=== PATIENT | female | born 1940 | race Caucasian/White ===

== ENCOUNTER → 2022-03-09 13:41 | Outpatient (CLI) | payer MEDICARE, SELFPAY ==
--- NOTE | ~2022-03-09 | MM_ITS ---
EXAMINATION: MM screening dayron BI w prasanth HISTORY: Screening mammogram TECHNIQUE: Craniocaudal and mediolateral oblique 3-D tomosynthesis images were obtained and synthetic 2-D images were generated. CAD analysis was submitted and interpreted. COMPARISON: No prior mammogram is available for comparison at this institution. BREAST PARENCHYMAL COMPOSITION: There are scattered areas of fibroglandular density. FINDINGS: There is no evidence of suspicious mass, calcification, or architectural distortion to sugg est malignancy in either breast. There has been no suspicious interval change. IMPRESSION: 1. No mammographic evidence of malignancy. 2. Recommend routine screening mammography in one year. BI-RADS Category 1: Negative Reviewed, dictated and finalized at location A.
== END ==
PROVIDERS: PCP Internal Medicine; Visit Provider Internal Medicine
DX: Z12.31 Encounter for screening mammogram for malignant neoplasm of breast (principal)
CPT/HCPCS: 77063; 77067

== ENCOUNTER 2024-10-05 19:21 | Inpatient (IN) | payer MEDICARE, SELFPAY ==
--- NOTE | ~2024-10-05 | XR_ITS ---
EXAMINATION: XR chest 2V Exam Date/Time: 10/05/2024 19:38 CDT HISTORY: palpitations Comparison: None. RESULT: Lines, tubes, and devices: None. Lungs and pleura: Clear. Left lower lobe granuloma/hamartoma Cardiomediastinal silhouette: Mild cardiomegaly. Mild arch calcification and unfolding. Other: No acute osseous or upper abdominal finding. IMPRESSION: No acute cardiopulmonary process. Reviewed, dictated and finalized at location K.
[2024-10-05 19:19] VITALS: BP 188/101; PULSE 91; RESP 14; TEMP 36.7; O2SAT 99
--- NOTE | 2024-10-05 19:25 | ECG_ITS ---
Test Date: 2024-10-05 22:30:13 Measurements Intervals [place] Rate: 85 P: -12 FL: 136 QRS: 2 QRSD: 81 T: 25 QT: 353 QTc: 421 Interpretive Statements SINUS RHYTHM WITH SINUS ARRHYTHMIA POSSIBLE LEFT ATRIAL ENLARGEMENT VOLTAGE CRITERIA FOR LVH CONSIDER ANTERIOR INFARCT, AGE INDETERMINATE CONSIDER INFERIOR INFARCT, AGE INDETERMINATE BASELINE ARTIFACT- I, II, III, AVR, AVL, AVF ABNORMAL ECG No previous ECG available for comparison Electronically Signed On 10-06-2024 06:26:34 CDT by Pascual Tucker D.O.
[2024-10-05 19:35] LABS: Basophils Percent Auto 0.5 % (0.2-1.2); Eosinophils Absolute Auto 0.1 K/mm3 (0-0.3); Eosinophils Percent Auto 1.5 % (0-4.4); Hematocrit 44.7 % (37.0-47.0); Hemoglobin 14.6 g/dL (12.0-15.0); Immature Granulocyte Absolute 0.02 K/mm3 (0.00-0.031); Immature Granulocyte Percent A 0.2 % (0-0.5); Lymphocytes Absolute Auto 1.23 K/mm3 (0.9-3.2); Lymphocytes Percent Auto 14.2 % (18.3-44.2); Mean Corpuscular HGB Conc 32.7 g/dl (32-36); Mean Corpuscular Hemoglobin 31.7 pg (26-34); Mean Platelet Volume 11.4 fl (7.4-10.4); Monocytes Absolute Auto 0.8 K/mm3 (0.1-0.6); Monocytes Percent Auto 9.7 % (2.6-8.5); Neutrophils Absolute Auto 6.4 K/mm3 (1.3-6.7); Neutrophils Percent Auto 73.9 % (45.5-73.1); Platelet Count Result 190 k/mm3 (150-375); Red Blood Count 4.61 M/mm3 (4.2-5.4); Red Cell Distribution Width 13.3 % (11.5-14.5); White Blood Count 8.7 K/mm3 (4.5-10.0)
[2024-10-05 19:47] LABS: Partial Thromboplastin Time 23.5 Seconds (22.3-36.8); Prothrombin Time 13.5 Seconds (11.1-14.7)
[2024-10-05 19:48] LABS: Alanine Aminotransferase 25 U/L (6-35); Albumin Level 4.8 g/dL (3.5-5.1); Alkaline Phosphatase 82 U/L (38-126); Anion Gap 14 mmol/L (4-12); Aspartate Amino Transferase 26 U/L (14-36); Bilirubin,Total 0.5 mg/dL (0.2-1.3); Blood Urea Nitrogen 24 mg/dL (7-17); Calcium 9.8 mg/dL (8.4-10.2); Carbon Dioxide 21 mmol/L (22-30); Chloride 101 mmol/L (98-107); Estimated CRCL calculation 35 ml/min; Estimated Glomerular Filt Rate 52; Glucose 148 mg/dL (65-110); Lipase 212 U/L (23-300); Potassium 3.9 mmol/L (3.4-5.0); Sodium 136 mmol/L (137-145)
[2024-10-05 20:00] LABS: Troponin I < 0.012 ng/mL (0.000-0.034)
--- OUTSIDE RECORDS SUMMARY | 2024-10-05 20:40 | XMS_ITS | Clinical Summary ---
Author Organization [facility] Address [address] [place] [address] Care Team Providers Care Insurance Underwriter Name Role Phone Francisco Tinoco MD Primary Care Provider [phone] Allergies Active Allergy Reactions Criticality Noted Date Comments Oxycodone Nausea and Vomiting 12/08/2019 Medications multiple vitamins-minerals (AQUADEKS) Cap Take 1 capsule by mouth daily. Active Multiple Vitamins-Minerals (MULTIVITAMIN ADULTS 50+ OR) Take 1 tablet by mouth daily. Active calcium carb-cholecalcife rol (CALCIUM 600+D) 600-800 MG-UNIT tablet Take 1 tablet by mouth daily. Active aspirin EC (ECOTRIN) 81 MG tablet Take 1 tablet (81 mg total) by mouth daily. Active vitamin C (ASCORBIC ACID) 250 MG tablet Take 1 tablet (250 mg total) by mouth daily. Active NON FORMULARY Glucose 4, one capsule daily. Active amLODIPine (NORVASC) 10 MG tabletIndications :Benign essential hypertension Take 1 tablet (10 mg total) by mouth daily. 90 tablet 3 5 Active Active Problems Problem Noted Date Diagnosed Date Nonrheumatic aortic valve stenosis 05/09/2022 Pericardial effusion (HHS/HCC) 05/09/2022 Nonrheumatic mitral valve stenosis 05/09/2022 Pure hypercholesterolemia 05/09/2022 Osteopenia 03/07/2019 Acute stress disorder 11/04/2017 BMI 29.0-29.9,adult 01/29/2017 Fatigue 07/01/2012 Benign essential hypertension 03/07/2012 Encounters Date Type Department Care Team Description 07/29/2024 Telephone [facility] Family [facility] Internal Medicine [address] [id number] Francisco Tinoco MD Medication Request from Last 3 Months Immunizations Immunization Administration Dates Next Due Fluzone High Dose - >Age 65 (Prefilled Syringe) 04/12/2022,04/11/2021,04/09/2020 Influenza Adult (Generic) 04/12/2022,06/2017(Deferred: Patient Refused) PFIZER COVID-19 (ORIGINAL FORMULATION, PURPLE CAP) mRNA, LNP-S, PF, 30 MCG/0.3 ML DOSE 05/02/2021,09/22/2020,08/25/2020 Pneumococcal (Pneumovax 23) 02/04/2018 Pneumococcal (Prevnar 13) 01/29/2017 Pneumovax 23 25 Mcg/0.5Ml Ij Inj 02/04/2018 Shingrix 05/10/2019,02/27/2019 VFC-Influenza (Fluvirin) 03/11/2019(Defe rred: Patient Refused - pt states she never gets the flu shot) Family History Medical History Relation Comments Heart Disease Father Heart Disease Mother Hypertension Sister Thyroid Disease Sister Relation Status Comments Father Mother Sister Social History Tobacco Use Types Packs/Day Years Used Date Smoking Tobacco: Never Smokeless Tobacco: Never Tobacco Cessation:Counseling Given: Not Answered Comments:Not a smoker Alcohol Use Standard Drinks/Week Comments No 0 (1 standard drink = 0.6 oz pur e alcohol) AUDIT-C Answer Date Recorded Frequency of Alcohol Consumption Never 02/10/2019 Average Number of Drinks Not on file 019 Frequency of Binge Drinking Not on file 01/23 PHQ-2 Answer Date Recorded Patient Health Questionnaire-2 Score 0 04/11/2023 Education Answer Date Recorded What is the highest level of school you have completed or the highest degree you have received? 12th grade 02/10/2019 Comments No Sex and Gender Information Value Date Recorded Sex Assigned at Female 02/10/2019 8:31 AM CDT Legal Sex Female 6:57 PM CDT Gender Identity Female 02/10/2019 8:31 AM CDT Sexual Orientation Straight 02/10/2019 8: 31 AM CDT Last Filed Vital Signs Vital Sign Reading Time Taken Comments Blood Pressure 170/82 02/28/2024 9:36 AM CDT Pulse 73 02/28/2024 9:36 AM CDT Temperature 36.8 C (98.2 F) 02/28/2024 9:36 AM CDT Respiratory Rate 16 02/28/2024 9:36 AM CDT Oxygen Saturation 98% 02/28/2024 9:36 AM CDT Inhaled Oxygen Concentration - - Weight 76.1 kg (167 lb 12.8 oz) 02/28/2024 9:36 AM CDT Height 160 cm (5' 3 ) 02/28/2024 9:36 AM CDT Body Mass Index 29.72 02/28/2024 9:36 AM CDT Plan of Treatment Upcoming Encounters Date Type Department Care Team (Late st Contact Info) Description 02/09/2025 7:20 AM CDT Laboratory Only [facility] Family & Internal [address] [address] Francisco Tinoco MD [address] [place] [address] 02/16/2025 8:00 AM CDT Office Visit [facility] [address] [phone] Francisco Tinoco MD [address] [place] [address] Health Maintenance Due Date Last Done Comments Annual Medicare Wellness Visit 09/29/2022 09/28/2021 PHQ-2 (Physician [place]) 06/25/2024 04/11/2023 COVID-19 Vaccine (4 - 2023-2 5 season) 2025 05/02/2021, 09/22/2020, 08/25/2020 Postponed from 02/24/2024 (Going to Outside Clinic) DTaP, Tdap and Td Vaccines ( 1 - Tdap) 02/27/2025 Postponed from 10/12 (Going to Outside Clinic) RSV Immunization or 60+ Years (1 - 1-dose 75+ series) 02/27/2025 Postponed from 10/12 (Going to Outside Clinic) Pneumococcal Vaccine: 50+ Years Completed 02/04/2018, 02/04/2018, 01/29/2017 Zoster Vaccines Completed 05/10/2019, 02/27/2019 Meningococcal B Vaccine Aged Out No l onger eligible based on patient's age to complete this topic Meningococcal Vaccine Aged Out No leonard allie eligible based on patient's age to complete this topic RSV Immunizations Under 20 Months Aged Out No longer eligible b ased on patient's age to complete this topic Insurance [employer] HUMAN Care Teams Insurance Underwriter Relationship Specialty Start Date End Date Francisco Tinoco MD [address] [place] [id number] PCP - General INTERNAL MEDICINE 06/04/18
--- OUTSIDE RECORDS SUMMARY | 2024-10-05 20:40 | XMS_ITS | Encounter Summary ---
Author Organization 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 Historical Provider Final Res ult documented in this encounter Visit Diagnoses Not on filedocumented in this encounter Care Teams Outdoor Advertising Leasing Agent Relationship Specialty Start Date End Date No, Physician PCP - General 04/01/21 documented as of this encounter
--- OUTSIDE RECORDS SUMMARY | 2024-10-05 20:40 | XMS_ITS | Referral Summary ---
Author Organization [facility] Address [address] [place] [address] Care Team Providers Care Cvor Nurse Name Role Phone No, Physician Primary Care Provider [phone] Allergies No known active allergies Medications aspirin 81 mg enteric coated tablet Take 1 tablet by mouth daily Active amLODIPine (NORVASC) 10 mg tablet 03/14/2021 Active calcium carbonate/vitami n D3 (CALCIUM 600 + D,3, ORAL) Take by mouth Active mv-minerals/FA/o yonathan 3,6,9 #3 (WOMEN'S 50+ ADVANCED ORAL) Take by mouth Active Active Problems No known active problems Social History Tobacco Use Types Packs/Day Years Used Date Smoking Tobacco: Never Personal Safety Answer Date Recorded Getting School Help Needed Not on file 09/07 Comments Unknown Sex and Gender Information Value Date Recorded Sex Assigned at Not on file 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 Gender Identity Not on file Sexual Orientation Not on file Occupation Industry Job Start Date Job End Date retired Not on file Not on file Not on file Last Filed Vital Signs Vital Sign Reading Time Taken Comments Blood Pressure 147/64 04/07/2016 7:34 AM CDT Pulse 73 04/07/2016 7:34 AM CDT Temperature 36.6 C (97.9 F) 04/07/2016 7:34 AM CDT Respiratory Rate - - Oxygen Saturation 98% 04/07/2016 7:34 AM CDT Inhaled Oxygen Concentration - - Weight 72.6 kg (160 lb) 04/12/2021 8:31 AM CDT Height 162.6 cm (5' 4 ) 04/12/2021 8:31 AM CDT Body Mass Index 27.46 04/12/2021 8:31 AM CDT Plan of Treatment Not on file Insurance Advance Directives For more information, please contact: [phone] Documents on File Type Date Recorded Patient Show Host Or Hostess Expl anation ADVANCE DIRECTIVE 03/28/2016 12:00 AM OJ Pereira OF SOFTWARE TEST DEVELOPER FINANCIAL/MEDICAL Care Teams Cvor Nurse Relationship Specialty Start Date End Date No, Physician PCP - General 04/01/21
--- OUTSIDE RECORDS SUMMARY | 2024-10-05 20:40 | XMS_ITS | Continuity of Care Document ---
Author Organization [facility] Address [address] [place] [address] Phone Care Team Providers Care Right Of Way Man Name Role Phone Saman Agarwal Unavailable Unavailable Procedures Procedure Date Therapeutic Activities Therapeutic Exercise Neuromuscular Re-Ed Therapeutic Activities Neuromuscular Re-Ed Therapeutic Exercise Therapeutic Activities Neuromuscular Re-Ed Therapeutic Exercise Hot or Cold Pack Therapeutic Activities Neuromuscular Re-Ed Therapeutic Exercise Hot or Cold Pack Manual Therapy Doc neg elder mal no plan PRES/ABSN URINE INCON ASSESS PT Evaluation Moderate Complexity Neuromuscular Re-Ed Therapeutic Exercise THERAPEUTIC EXERCISES MANUAL THERAPY FUNC ACTIVITY HOT/COLD PACK ELECTRIC STIMULATION UNATT THERAPEUTIC EXERCISES MANUAL THERAPY FUNC ACTIVITY HOT/COLD PACK ELECTRIC STIMULATION UNATT THERAPEUTIC EXERCISES MANUAL THERAPY FUNC ACTIVITY NEUROMUSCULAR RE-ED HOT/COLD PACK ELECTRIC STIMULATION UNATT THERAPEUTIC EXERCISES NEUROMUSCULAR RE-ED MANUAL THERAPY FUNC ACTIVITY HOT/COLD PACK ELECTRIC STIMULATION UNATT THERAPEUTIC EXERCISES NEUROMUSCULAR RE-ED MANUAL THERAPY FUNC ACTIVITY HOT/COLD PACK ELECTRIC STIMULATION UNATT THERAPEUTIC EXERCISES NEUROMUSCULAR RE-ED MANUAL THERAPY FUNC ACTIVITY HOT/COLD PACK ELECTRIC STIMULATION UNA THERAPEUTIC EXERCISES NEUROMUSCULAR RE-ED MANUAL THERAPY FUNC ACTIVITY GAIT TRAINING 15 MIN HOT/COLD PACK ELECTRIC STIMULATION UNATT THERAPEUTIC EXERCISES NEUROMUSCULAR RE-ED MANUAL THERAPY FUNC ACTIVITY HOT/COLD PACK ELECTRIC STIMULATION UNA PT EVALUATION THERAPEUTIC EXERCISES MANUAL THERAPY FUNC ACTIVITY GAIT TRAINING 15 MIN ELECTRIC STIMULATION UNATT Carrying, Moving And Handling Objects-Cu rrent Carrying, Moving And Handling Objects-Go al Medications Name Dose Freq Route DOC Apr Pain Assess Positive DOC 2015 BMI Normal and DOC 18-64 yo=18.5-25.0 65 + yo=23.0-30.0 No Falls or 1 Fall w/o Injury Screened f or Fall Risk Functional Outcome Assessmen t documented, deficits identified, treatment plan es Advance Directives Directive Yes / No Effective Date File Name No Information Encounters Encounter Description Practice Location Reason(s) For Visit Diagnoses Date Provider Providers Copied on Encounter [facility], [address] [address], [place], [place], [id number], [place] tel:[phone] [place] No Information Sep-2 0-202 4 Muehl Saman. [address] [place] [address], [address], [place], [place], [facility], [place]. tel:[phone] Referring Provider: [place], [address]. tel:[phone] [place] [address], [id number], tel:[phone] [place] No Information Sep-1 7-202 4 Muehl Saman. [address] [place] [address], [facility], [place], [place], [facility], [place]. tel:[phone] Referring Provider: [place], [address]. tel:[phone] [place] [address], [id number], tel:[phone] [place] No Information Sep-1 2-202 4 Muehl Saman. [address] [place] [address], [address], [place], [facility], [place]. tel:[phone] Referring Provider: [place], [address]. tel:[phone] [place] [address], [id number], [place] tel:[phone] [place] No Information Sep-1 0-202 4 Muehl Saman. [address] [place] [address], [address], [place], [address], [place]. tel:[phone] Referring Provider: [place], [address]. tel:[phone] [place], [place] [address], [place], [place], [id number], tel:[phone] [place] No Information Sep-0 6-202 4 Muehl Saman. [address] [place] [address], [address], [place], [place], [facility], . tel:[phone] Referring Provider: Francisco Tinoco, [address] [facility], [place], [address]. tel:[phone], [place], [place], [id number], tel:[phone] [place] No Information Dec-1 2-201 6 Niederhoffer Lacy. . Referring Provider: Braulio Katz, [address] [place] [address], [place], [address]. tel:[phone], [place], [place], [id number], [place] tel:[phone] [place] No Information Dec-0 9-201 6 Niederhoffer Lacy. . Referring Provider: Braulio Katz, [address] [place] [address], [place], [address]. tel:[phone], [place], [id number], [place] tel:[phone] [place] No Information Dec-0 7-201 6 Muehl Saman. [address] [facility] [address], [place], [facility], [place]. tel:[phone] Referring Provider: Braulio Katz, [address] [place] [address], [place], [address]. tel:[phone] [address], [place], [id number], [place] tel:[phone] [place] No Information Dec-0 5-201 6 Muehl Saman. [address] [facility], [address], [place], [address], [place]. tel:[phone] Referring Provider: Braulio Katz, [address] [place] [address], [place], [address]. tel:[phone] [address], [place], [place], [id number], [place] tel:[phone] [place] No Information Dec-0 2-201 6 Muehl Saman. [address] [facility], [address], [place], [facility], . tel:[phone] Referring Provider: Braulio Katz [address] [place] [address] [address], [address]. tel:[phone] [address], [place], [id number], tel:[phone] [place] No Information Apr-3 0-201 6 Muehl Saman. [address] [facility], [address], [place], [place], [facility], [place]. tel:[phone] Referring Provider: Braulio Katz [address] [place] [address] [address], [place], [address]. tel:[phone], [id number], tel:[phone] [place] No Information Nov-2 8-201 6 Muehl Saman. [address] [place] [address], [address], [place], [facility], [place]. tel:[phone] Referring Provider: Braulio Katz [address] [place] [address] [address], [place], [address]. tel:[phone], [place], [id number], tel:[phone] [place] No Information Apr-2 5-201 6 Muehl Saman. [address] [place] [address], [address], [place], [facility], . tel:[phone] Referring Provider: Braulio Katz [address] [place] [address] [address], [place], [address]. tel:[phone] [address], [place], [id number], tel:[phone] [place] Pain in left kneeStiffness of left knee, not elsewhere classifiedEff usion, left kneeUnspecifi ed abnormalities of gait and mobilityMuscl e weakness (generalized) Presence of left artificial knee joint Nov-2 2-201 6 Ar Davison. [address] [facility], [address], [place], [address], [place]. tel:[phone] Referring Provider: Braulio Katz, [facility] [address], [place], [address]. tel:[phone] Family History Family Member Type Diagnosis Age At Onset No Information Payers Payer name Insurance type Covered constitution party ID Authorfinaa alphonso(s) Aetna Medicare Replacement CI [id number] Social History Type Description Quantity Date Captured Comments Sex Female Smoking Status No Information Chief Complaint And Reason For Visit No Information Reason For Referral Reason For Referral No Information History Of Present Illness Encounter Date Complaint History Of Prese nt Illness No Information Functional Status Date Functional Assessmen t No Information Instructions Date Instruction Additional Infor mation No Information Assessments Type Assessment Date No Information Patient Care Teams Name Effective Dates (start - stop) Status Members No Information
--- OUTSIDE RECORDS SUMMARY | 2024-10-05 20:40 | XMS_ITS | Clinical Summary ---
Author Organization [facility] Address [facility] [place] [address] Care Team Providers Care Collar Turner Name Role Phone No, Physician Primary Care Provider [phone] Allergies No known active allergies Medications aspirin 81 mg enteric coated tablet Take 1 tablet by mouth daily Active amLODIPine (NORVASC) 10 mg tablet 03/14/2021 Active calcium carbonate/vitami n D3 (CALCIUM 600 + D,3, ORAL) Take by mouth Active mv-minerals/FA/o yonathan 3,6,9 #3 (WOMEN'S 50+ ADVANCED ORAL) Take by mouth Active Active Problems No known active problems Surgical History Surgery Date Site/Laterality Comments JOINT REPLACEMENT Left total knee Medical History Medical History Date Comments Hypertension Family History Medical History Relation Name Comments Stroke Father Arthritis Mother Relation Name Status Comments Father Mother Social History Tobacco Use Types Packs/Day Years Used Date Smoking Tobacco: Never Personal Safety Answer Date Recorded Getting School Help Needed Not on file 09/07 Comments Unknown Sex and Gender Information Value Date Recorded Sex Assigned at Not on file 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
--- OUTSIDE RECORDS SUMMARY | 2024-10-05 20:40 | XMS_ITS | Encounter Summary ---
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 Historical Provider Final Res ult * PROCEDURE - RESULT (04/07/2016 12:00 AM CDT) Narrative 04/07/2016 12:00 AM CDT Ordered by an unspecified provider. Historical Provider Final Res ult documented in this encounter Visit Diagnoses Not on filedocumented in this encounter Care Teams Supervisor Lace Tearing Relationship Specialty Start Date End Date No, Physician PCP - General 04/01/21 documented as of this encounter
[2024-10-05 20:52] VITALS: BP 169/93; PULSE 88; RESP 19; O2SAT 97
[2024-10-05 23:45] VITALS: BP 159/78; PULSE 83; RESP 15; O2SAT 99
--- NOTE | 2024-10-05 23:50 | ED_ITS ---
HPI - General Adult General Chief complaint: Arrhythmia/Palpitations Stated complaint: ANXIETY, ELEVATED PULSE & B/P Time Seen by Provider: 10/05/24 20:12 History of Present Illness HPI narrative: Patient is a 83-year-old female presents emergency department with chief complaint of elevated heart rate elevated blood pressure. Patient states she did have a little bit of fullness in her chest as well a tightness in her throat. The patient states that her symptoms have currently resolved reports that she had no diaphoresis reports that she takes amlodipine for hypertension. Related Data Allergies Allergy/AdvReac Type Severity Reaction Status Date / Time No Known Allergies Allergy Verified 10/05/24 19:33 Review of Systems 2 Review of Systems: A 10 system review of systems was completed on the patient and is negative except for what is stated in the HPI. Nursing and ancillary documentation was reviewed. Exam 2 Narrative: GENERAL: Well-appearing, well-nourished, and in no acute distress. HEAD: Normocephalic, atraumatic. EYES: PERRLA and EOMI. ENT: Nares clear, no rhinorrhea or epistaxis. Mucous membranes moist. NECK: Supple. CHEST: Clear to auscultation. No respiratory distress. HEART: Regular rate and rhythm. No murmur heard. Normal peripheral pulses. ABDOMEN: Soft, nontender, nondistended, normal active bowel sounds. EXTREMITIES: Normal range of motion. No edema. SKIN: Warm, dry, no rash. NEURO: No focal deficits. Alert and oriented x3. PSYCH: Normal mood and affect. Course Vital Signs Vital signs: Vital Signs Temperature 36.7 C 10/05/24 19:19 Pulse Rate 91 10/05/24 19:19 Respiratory Rate 14 10/05/24 19:19 Blood Pressure 188/101 H 10/05/24 19:19 Pulse Oximetry 99 10/05/24 19:19 Oxygen Delivery Room Air 10/05/24 19:19 Temperature 36.7 C 10/05/24 19:19 Pulse Rate 83 10/05/24 23:45 Respiratory Rate 15 10/05/24 23:45 Blood Pressure 159/78 H 10/05/24 23:45 Pulse Oximetry 99 10/05/24 23:45 Oxygen Delivery Room Air 10/05/24 19:19 Medical Decision Making [facility] Narrative Medical decision making narrative: Differential diagnosis includes ACS, hypertensive urgency, electrolyte abnormality, dysrhythmia, EKG showed no acute ischemic changes Initial troponin was less than 0.012 repeat troponin was 0.030 This was negative but given the troponin has increased significantly the patient will be admitted for observation with serial cardiac markers. Vital Signs Vital Signs: Vital Signs Temperature 36.7 C 10/05/24 19:19 Pulse Rate 91 10/05/24 19:19 Respiratory Rate 14 10/05/24 19:19 Blood Pressure 188/101 H 10/05/24 19:19 Pulse Oximetry 99 10/05/24 19:19 Oxygen Delivery Room Air 10/05/24 19:19 Temperature 36.7 C 10/05/24 19:19 Pulse Rate 83 10/05/24 23:45 Respiratory Rate 15 10/05/24 23:45 Blood Pressure 159/78 H 10/05/24 23:45 Pulse Oximetry 99 10/05/24 23:45 Oxygen Delivery Room Air 10/05/24 19:19 Lab Data 10/05/24 19:28 10/05/24 19:28 Labs: Lab Results 10/05/24 10/05/24 Range/Units 19:28 22:25 WBC 8.7 (4.5-10.0) K/mm3 RBC 4.61 (4.2-5.4) M/mm3 Hgb 14.6 (12.0-15.0) g/dL Hct 44.7 (37.0-47.0) % MCV 97.0 (80-100) fl MCH 31.7 (26-34) pg MCHC 32.7 (32-36) g/dl RDW 13.3 (11.5-14.5) % Plt Count 190 (150-375) k/mm3 MPV 11.4 H (7.4-10.4) fl Immature Gran % (Auto) 0.2 (0-0.5) % Neut % (Auto) 73.9 H (45.5-73.1) % Lymph % (Auto) 14.2 L (18.3-44.2) % [place] % (Auto) 9.7 H (2.6-8.5) % Eos % (Auto) 1.5 (0-4.4) % Baso % (Auto) 0.5 (0.2-1.2) % Lymph # (Auto) 1.23 (0.9-3.2) K/mm3 [place] # (Auto) 0.8 H (0.1-0.6) K/mm3 Eos # (Auto) 0.1 (0-0.3) K/mm3 Baso # (Auto) 0.0 (0.0-0.1) K/mm3 Abs Immat Gran (auto) 0.02 (0.00-0.031) K/mm3 Absolute Neuts (auto) 6.4 (1.3-6.7) K/mm3 Absolute Nucleated RBC 0.000 (0.0-0.012) K/mm3 Nucleated RBC % 0.0 (0.0-0.2) % PT 13.5 (11.1-14.7) Seconds INR 1.0 APTT 23.5 (22.3-36.8) Seconds Sodium 136 L (137-145) mmol/L Potassium 3.9 (3.4-5.0) mmol/L Chloride 101 (98-107) mmol/L Carbon Dioxide 21 L (22-30) mmol/L Anion Gap 14 H (4-12) mmol/L BUN 24 H (7-17) mg/dL Creatinine 1.02 H (0.7-1.0) mg/dL Estim Creat Clear Calc 35 ml/min Estimated GFR 52 L (59 - ) Glucose 148 H (65-110) mg/dL Calcium 9.8 (8.4-10.2) mg/dL Total Bilirubin 0.5 (0.2-1.3) mg/dL AST 26 (14-36) U/L ALT 25 (6-35) U/L Alkaline Phosphatase 82 (38-126) U/L Troponin I < 0.012 0.030 D (0.000-0.034) ng/mL Total Protein 9.0 H (6.3-8.2) g/dL Albumin 4.8 (3.5-5.1) g/dL Lipase 212 (23-300) U/L Discharge Plan Discharge Clinical Impression: Palpitations, Hypertension, Atypical chest pain Patient Disposition: Still a Patient Condition: Stable Patient Language: Turkmen Follow-up/Referrals: Earnest,Francisco June MD [Primary Care Provider] - Time of Disposition: 23:52
[2024-10-06] VITALS (17 sets, daily range): BP systolic 125–184; BP diastolic 58–93; PULSE 48–83; RESP 14–20; TEMP 36.6–36.9; O2SAT 97–99; BMI 28.5
--- NOTE | 2024-10-06 | ECHO_ITS ---
Patient Info Name: Mague Estrada Age: 83 years : 1940 Gender: Female Ht: 64 in Wt: 171 lbs BSA: 1.90 m2 HR: 70 bpm BP: 149 / 67 mmHg Technical Quality: Good Exam Date: 10/06/2024 2:22 PM Exam Location: Echo Lab Patient Status: Outpatient Admit Date: 10/05/2024 Staff Ordering Physician: Wes Booth MD Head Of Data: Ana Field RDCS Attending Provider: Wes Booth MD Referring Physician: Emmy HURLEY; Exam Type: CA echo doppler color flow Study Info Indications - Chest Pain Complete two-dimensional, color flow and Doppler transthoracic echocardiogram is performed. Summary 1. Complete two-dimensional, color flow and Doppler transthoracic echocardiogram is performed. 2. Left ventricular systolic function is hyperdynamic, estimated at >70%. 3. There is moderately increased left ventricular wall thickness. 4. The left ventricular diastolic function is grade I diastolic dysfunction. 5. Left atrial chamber dimension is severely enlarged. 6. There is moderate to severe aortic valve stenosis with a peak velocity of 339 cm/s, mean gradient of 31 mmHg, and aortic valve area of 1.0 cm2. 7. There is moderate aortic valve calcification. 8. There is mild to moderate mitral valve stenosis. 9. There is moderate mitral valve calcification. 10. There is mild tricuspid valve regurgitation. 11. Mild pulmonary hypertension, estimated pulmonary arterial systolic pressure is 40 mmHg. 12. small to moderate pericardial effusion. No tamponade. Left Ventricle Left ventricular chamber dimension is normal. Left ventricular systolic function is hyperdynamic, estimated at >70%. There is moderately increased left ventricular wall thickness. Left ventricular septal wall motion is normal. The left ventricular diastolic function is grade I diastolic dysfunction. Right Ventricle Right ventricular chamber dimension is normal. Right ventricular systolic function is normal. Left Atria Left atrial chamber dimension is severely enlarged. Right Atria Right atrial chamber dimension is normal. Aortic Valve The aortic valve is trileaflet. There is no aortic valve sclerosis. There is moderate to severe aortic valve stenosis with a peak velocity of 339 cm/s, mean gradient of 31 mmHg, and aortic valve area of 1.0 cm2. There is no aortic valve regurgitation. There is moderate aortic valve calcification. Pulmonic Valve The pulmonic valve is normal. There is no pulmonic valve stenosis. There is no pulmonic regurgitation. Mitral Valve The mitral valve has normal leaflets. There is mild to moderate mitral valve stenosis. There is no mitral valve regurgitation. There is moderate mitral valve calcification. Tricuspid Valve The tricuspid valve leaflets are normal. There is no significant tricuspid valve stenosis. There is mild tricuspid valve regurgitation. Mild pulmonary hypertension, estimated pulmonary arterial systolic pressure is 40 mmHg. Pericardium/Pleural The pericardium appears normal. There is no pericardial effusion. Inferior Vena Cava Normal inferior vena cava with >50% collapse upon inspiration consistent with normal right atrial pressure, 5 mmHg. Aorta The aortic root size at the sinus of Valsalva is normal. The prox ascending aorta size is normal. Left Ventricular Outflow Tract Name Value Normal LVOT 2D LVOT Diameter 1.8 cm LVOT Doppler LVOT Peak Gradient 6 mmHg LVOT Mean Gradient 4 mmHg LVOT VTI 28 cm LVOT VTI/AV VTI Ratio 0.4 LVOT Stroke Volume 74 ml LVOT CO 16.1 l/min LVOT CI 8.5 l/min/m2 Pulmonic Valve Name Value Normal PV Doppler PV Peak Gradient 5 mmHg Mitral Valve Name Value Normal MV Doppler MV Peak Gradient 20 mmHg MV Mean Gradient 6 mmHg MV Decel Crisp 310 cm/s2 MV PHT 132 ms MV Area (PHT) 1.7 cm2 4.0-5.0 MV Area (Cont Eq VTI) 0.9 cm2 MV Diastolic Function MV E Peak Velocity 141 cm/s MV A Peak Velocity 231 cm/s MV E/A 0.6 MV Decel Time 456 ms MV Annular TDI MV E/e' (Septal) 44.8 <=8.0 MV E/e' (Lateral) 47.5 <=8.0 MV E/e' (Average) 46.2 Tricuspid Valve Name Value Normal TV Regurgitation Doppler TR Peak Velocity 296 cm/s TR Peak Gradient 35 mmHg Estimated PAP/RSVP RA Pressure 5 mmHg <=5 PA Systolic Pressure 40 mmHg <36 RV Systolic Pressure 40 mmHg <36 Aorta Name Value Normal Ascending Aorta Ao Root Diameter (MM) 2.8 cm Ao Root Diam Index (MM) 1.5 cm/m2 Aortic Valve Name Value Normal AV Doppler AV Peak Velocity 339 cm/s AV Peak Gradient 46 mmHg AV Mean Gradient 31 mmHg AV VTI 74 cm AV Area (Cont Eq VTI) 1.0 cm2 >=3.0 AV Area (Cont Eq Brock) 0.9 cm2 AV Regurgitation 2D LVOT Area 2.6 cm2 Ventricles Name Value Normal LV Dimensions 2D/MM IVS Diastolic Thickness (2D) 1.7 cm 0.6-1.0 LVID Diastole (2D) 3.7 cm 3.8-5.2 LVIW Diastolic Thickness (2D) 1.3 cm 0.6-0.9 LVID Systole (2D) 2.1 cm 2.2-3.5 LVOT Diameter 1.8 cm LV Mass (2D Cubed) 199.45 g 67.00-162.00 LV Mass Index (2D Cubed) 105 g/m2 43-95 Relative Wall Thickness (2D) 0.69 LV Fractional Shortening/Ejection Fraction 2D/MM LV Fractional Shortening (2D) 43 % 27-45 LV EF (2D Teicholz) 75 % 54-74 LV Diastolic Volume (4C MOD) 74 ml LV EF (4C MOD) 63 % LV Diastolic Volume (2C MOD) 74 ml LV EF (2C MOD) 65 % LV Diastolic Volume (BP MOD) 74 ml 46-106 LV Diastolic Volume Index (BP MOD) 39 ml/m2 29-61 LV Systolic Volume (BP MOD) 27 ml 14-42 LV Systolic Volume Index (BP MOD) 14 ml/m2 8-24 LV EF (BP MOD) 63 % 54-74 LV Diastolic Length (4C) 7.5 cm LV Systolic Length (4C) 6.5 cm LV Stroke Volume (4C MOD) 46 ml RV Dimensions 2D/MM RVID Diastole (2D) 3.7 cm 2.5-3.5 Atria Name Value Normal LA Dimensions LA Dimension (MM) 4.8 cm 2.7-3.8 LA Volume (4C A-L) 113 ml LA Volume (BP A-L) 93 ml RA Dimensions RA Area (4C) 13.9 cm2 <=18.0 Report Signatures
--- NOTE | 2024-10-06 01:09 | ADMGEN ---
This patient, Mague Estrada, was admitted to IMU Room 213-01. Patient/family oriented to hospital policies and general routines including ID bracelet, bed and alarms, visiting hours, pain management, procedures, bathroom and other care routines, personal items, smoking policy, room service/diet, and visiting hours. Information on how to activate the Rapid Response Team has been discussed. Patient/Family are encouraged to report perceived risks to care and to ask questions if they do not understand what they are told or what they should do.
[2024-10-06 01:15] LABS: NT Pro B Type Natriuretic Pept 418 pg/mL (19.9-100)
[2024-10-06 02:27] LABS: Basophils Percent Auto 0.5 % (0.2-1.2); Eosinophils Absolute Auto 0.2 K/mm3 (0-0.3); Hematocrit 42.6 % (37.0-47.0); Immature Granulocyte Absolute 0.02 K/mm3 (0.00-0.031); Immature Granulocyte Percent A 0.2 % (0-0.5); Lymphocytes Absolute Auto 1.09 K/mm3 (0.9-3.2); Lymphocytes Percent Auto 13.3 % (18.3-44.2); Mean Corpuscular HGB Conc 32.9 g/dl (32-36); Mean Corpuscular Hemoglobin 31.5 pg (26-34); Mean Corpuscular Volume 95.7 fl (80-100); Mean Platelet Volume 11.4 fl (7.4-10.4); Monocytes Absolute Auto 0.8 K/mm3 (0.1-0.6); Monocytes Percent Auto 9.7 % (2.6-8.5); Neutrophils Absolute Auto 6.1 K/mm3 (1.3-6.7); Neutrophils Percent Auto 74.3 % (45.5-73.1); Platelet Count Result 178 k/mm3 (150-375); Red Blood Count 4.45 M/mm3 (4.2-5.4); Red Cell Distribution Width 13.2 % (11.5-14.5); White Blood Count 8.2 K/mm3 (4.5-10.0)
[2024-10-06 02:39] LABS: Alanine Aminotransferase 26 U/L (6-35); Albumin Level 4.4 g/dL (3.5-5.1); Alkaline Phosphatase 64 U/L (38-126); Anion Gap 11 mmol/L (4-12); Aspartate Amino Transferase 27 U/L (14-36); Bilirubin,Total 0.5 mg/dL (0.2-1.3); Blood Urea Nitrogen 19 mg/dL (7-17); Calcium 9.6 mg/dL (8.4-10.2); Carbon Dioxide 24 mmol/L (22-30); Chloride 102 mmol/L (98-107); Estimated CRCL calculation 43 ml/min; Estimated Glomerular Filt Rate > 60; Glucose 117 mg/dL (65-110); Potassium 3.9 mmol/L (3.4-5.0); Sodium 137 mmol/L (137-145)
--- NOTE | 2024-10-06 02:41 | ECG_ITS ---
Test Date: 2024-10-06 03:07:00 Measurements Intervals [place] Rate: 82 P: 65 MD: 146 QRS: 50 QRSD: 79 T: 23 QT: 373 QTc: 437 Interpretive Statements SINUS RHYTHM POSSIBLE LEFT ATRIAL ENLARGEMENT CONSIDER ANTERIOR INFARCT, AGE INDETERMINATE BORDERLINE ST-T WAVE ABNORMALITY- INFERIOR LEADS ABNORMAL ECG Compared to ECG 10/05/2024 22:30:13 NO SIGNIFICANT CHANGE Electronically Signed On 10-06-2024 06:29:38 CDT by Pascual Tucker D.O.
[2024-10-06] MEDS: amLODIPine BESYLATE 10 MG TABLET PO (02:58)
[2024-10-06] MEDS: cloNIDine HCL 0.1 MG TABLET PO (02:58)
[2024-10-06 03:10] LABS: Troponin I 0.035 ng/mL (0.000-0.034)
[2024-10-06] MEDS: HEPARIN SODIUM 5,000 UNITS/ML VIAL 5000 UNITS SUB-Q ×3 (05:13→22:19)
--- NOTE | 2024-10-06 06:14 | P.HP_ITS ---
H&P: HPI History of Present Illness Date/Time: 10/06/24 06:14 Chief Complaint: 1. Palpitations 2. Chest discomfort Narrative: Mague Esrtada is an 83 yo F with a mhx significant for anxiety, HTN She confesses to being anxious due to current economic and political unrest and end of life planning; she however has remained stable until noon of the day of presentation when she woke up with palpitations; they disappearead spontaneously wash attended christianity services; but upon returning home the chest discomfort returned with palpitations and this time it lingered. She checked her blood pressure which she found to be elevated with SBP as high as 190, for which she decided to present to the ER for expert evaluation. She denies cough, PND, orthopnea, bipedal swellings, dizziness, fevers, chills or LOC. She does not smoke/2 tobacco, vaping nicotine, drink alcohol or consume recreational/illicit drugs. Family history is not significant for coronary artery disease Work-up findings: Unremarkable CBC Says Na 136, K 3.9, Cl 101; CO2 21; HGB 14; BUN 24; CR 1.02; GFR 52 unremarkable liver chemistries; lipase to 1 to Troponin are 0.012, 0.030, 0.035 EKG: NSR; LAE; probable anterior NM BNP 418 CXR: Unremarkable Mague Estrada will be admitted, evaluated, and managed for chest pain Review of Systems Review of Systems: All systems reviewed & are unremarkable except as noted in HPI and below [facility] Family History Family History (Updated 10/06/24 @ 01:19 by Tatiana Shearer RN) Mother Colon cancer Social History Social History Smoking status: Never smoker Alcohol intake: never Substance use: never Do You Feel Safe in your Home?: Yes Lack of Transportation: No Lack of Food: Never True Current Housing: I Have Housing Concerned About Future Housing: No Difficulty Paying Gas/Electric Bills: No Difficulty Paying for Meds: No Currently Unemployed: No Education: High School Diploma/GED Difficulty w/ Childcare or Family Care: No Spiritual care concerns: No Meds Home Medications and Allergies Home Medications ?Medication ?Instructions ?Recorded ?Confirmed ?Type amlodipine 10 mg tablet 10 mg PO DAILY 10/06/24 10/06/24 History calcium carbonate (Calcium 600) 1,200 mg PO DAILY 10/06/24 10/06/24 History [id number] 250 mg-dha 90 1 cap PO DAILY 10/06/24 10/06/24 History mg-epa 160 [id number] capsule (Ocuvite Adult 50 Plus) Allergies Allergy/AdvReac Type Severity Reaction Status Date / Time No Known Allergies Allergy Verified 10/05/24 19:33 Vital Signs Vital Signs - 24 hr 10/05/24 19:19 10/05/24 20:52 10/05/24 23:45 Temperature 98.1 F Pulse Rate 91 88 83 Respiratory Rate 14 19 15 Blood Pressure 188/101 H 169/93 H 159/78 H Pulse Oximetry 99 97 99 Oxygen Delivery Room Air 10/06/24 00:34 10/06/24 01:14 10/06/24 02:00 Temperature 97.8 F Pulse Rate 82 79 76 Respiratory Rate 15 20 Blood Pressure 150/88 H 184/79 H Pulse Oximetry 97 99 Oxygen Delivery 10/06/24 03:10 10/06/24 04:00 10/06/24 04:00 Temperature 98.4 F Pulse Rate 82 81 75 Respiratory Rate 20 Blood Pressure 169/72 H 138/68 Pulse Oximetry 98 Oxygen Delivery 10/06/24 04:00 10/06/24 06:00 Temperature Pulse Rate 72 Respiratory Rate Blood Pressure Pulse Oximetry Oxygen Delivery Room Air H&P: Results Labs Labs: Short CBC 10/05/24 10/06/24 Range/Units 19:28 02:07 WBC 8.7 8.2 (4.5-10.0) K/mm3 Hgb 14.6 14.0 (12.0-15.0) g/dL Hct 44.7 42.6 (37.0-47.0) % Plt Count 190 178 (150-375) k/mm3 BMP 10/05/24 10/06/24 19:28 02:07 Sodium 136 L 137 Potassium 3.9 3.9 Chloride 101 102 Carbon Dioxide 21 L 24 BUN 24 H 19 H Creatinine 1.02 H 0.83 Glucose 148 H 117 H Calcium 9.8 9.6 Cardiac Enzymes 10/05/24 10/05/24 10/06/24 Range/Units 19:28 22:25 02:07 Troponin I < 0.012 0.030 D 0.035 H* (0.000-0.034) ng/mL Liver Function 10/05/24 10/06/24 Range/Units 19:28 02:07 Total Bilirubin 0.5 0.5 (0.2-1.3) mg/dL AST 26 27 (14-36) U/L ALT 25 26 (6-35) U/L Alkaline Phosphatase 82 64 (38-126) U/L Albumin 4.8 4.4 (3.5-5.1) g/dL Assessment and Plan Assessment and plan (1) Palpitations: Code(s): R00.2 - Palpitations Status: Acute (2) Hypertension: Code(s): I10 - Essential (primary) hypertension Status: Acute Plan Acute and principal conditions 1. Accelerated hypertension. 2. NSTEMi. 3. Palpitations. Chest discomfort Rx: * Trend troponin w/ECG * Cardiac monitoring * Tight BP Rx * Cardiology consulted Chronic and stable conditions * Hypertension. On Amlodipine * Obesity. BMI 29 * Anxiety. not medicated; may need Rx Miscellaneous care * VTE prophylaxis. SCDs; NEGRITA * Nutrition. heart healthy * Code status. Full Quality VTE Prophylaxis VTE prophylaxis: mechanical ordered and pharmacologic ordered Hospitalist MIPS Advance Care Plan I have confirmed that the patient's Advanced Care Plan is present, code status is documented, or surrogate decision maker is listed in patient medical record.: Yes Medication Reconciliation I have utilized all available resources to obtain, update and review the patients current medications (includes all prescriptions, OTC, herbals, anika abis, and nutritional supplements).: Yes The patient is not eligible for med reconciliation; the patient is in a emergent medical situation where delaying treatment would jeopardize the patients health.: Yes
[2024-10-06 06:57] LABS: Troponin I 0.029 ng/mL (0.000-0.034)
[2024-10-06 08:02] LABS: Magnesium 1.9 mg/dL (1.6-2.3)
[2024-10-06] MEDS: ASPIRIN 81 MG CHEWABLE TABLET PO (09:11)
--- NOTE | 2024-10-06 11:16 | P.PNIM_ITS ---
Progress Note: A&P Assessment and Plan (1) Palpitations: Code(s): R00.2 - Palpitations Status: Acute Assessment and Plan: * Cardiology consult, appreciate recommendations. * HARRY ordered. * Metoprolol 12.5 mg PO BID added. * TSH, Free T4 * Creatinine: 1.02 at admission, currently 0.83. * Troponin: 0.012-->0.030-->0.035-->0.029 * BNP: 418 * Will need a 30 day holter monitor at discharge. (2) Hypertension: Code(s): I10 - Essential (primary) hypertension Status: Acute Assessment and Plan: * Blood pressure 149/67. * Amlodipine 10 mg PO daily. * Metoprolol 12.5 mg PO BID added. Subjective Date/time seen: 10/06/24 11:17 Interval history: Patient denies chest pain, palpitations, headache, dizziness, nausea, or vomiting. Family at bedside. Review of Systems Review of Systems: All systems reviewed & are unremarkable except as noted in HPI and below Exam Const: General: comfortable and no acute distress Resp: Effort & Inspection: normal respiratory effort Auscultation: clear to auscultation bilaterally Cardio: Rate: regular rate Rhythm: regular rhythm Other: Telemetry- SR 76. GI: GI Palp: Yes Soft to palpation Auscultation: normal bowel sounds Skin: General skin exam: no rashes or lesions noted Neuro: Speech: normal speech Extrem: General: no pedal edema Psych: Mental Status: mental status grossly normal Affect: normal affect Objective Data Vital Signs Vital Signs: Vital Signs - 24 hr 10/05/24 19:19 10/05/24 20:52 10/05/24 23:45 Temperature 98.1 F Pulse Rate 91 88 83 Respiratory Rate 14 19 15 Blood Pressure 188/101 H 169/93 H 159/78 H Pulse Oximetry 99 97 99 Oxygen Delivery Room Air 10/06/24 00:34 10/06/24 01:14 10/06/24 02:00 Temperature 97.8 F Pulse Rate 82 79 76 Respiratory Rate 15 20 Blood Pressure 150/88 H 184/79 H Pulse Oximetry 97 99 Oxygen Delivery 10/06/24 03:10 10/06/24 04:00 10/06/24 04:00 Temperature 98.4 F Pulse Rate 82 81 75 Respiratory Rate 20 Blood Pressure 169/72 H 138/68 Pulse Oximetry 98 Oxygen Delivery 10/06/24 04:00 10/06/24 06:00 10/06/24 08:00 Temperature 97.8 F Pulse Rate 72 78 Respiratory Rate 20 Blood Pressure 145/71 H Pulse Oximetry 97 Oxygen Delivery Room Air 10/06/24 08:00 Temperature Pulse Rate 78 Respiratory Rate 20 Blood Pressure Pulse Oximetry 97 Oxygen Delivery Room Air Intake/Output Intake/Output: Intake & Output 10/03/24 10/04/24 10/05/24 10/06/24 23:59 23:59 23:59 23:59 Intake Total 120 Balance 120 Meds/Results Medications: Active Medications Generic Name Dose Route Start Last Admin Trade Name Freq PRN Reason Stop Dose Admin Acetaminophen 650 mg 10/06/24 00:10 Acetaminophen 325 Mg Tablet PO Q4H PRN Mild Pain (1-3) or Fever Amlodipine Besylate 10 mg 10/06/24 02:05 10/06/24 02:58 Amlodipine Besylate 10 Mg Tablet PO 10 mg DAILY NEGRITA Administration Aspirin 81 mg 10/06/24 08:00 10/06/24 09:11 Aspirin 81 Mg Chewable Tablet PO 81 mg DAILY@0800 NEGRITA Administration Bisacodyl 5 mg 10/06/24 00:10 Bisacodyl 5 Mg Tablet Ec PO DAILY PRN Constipation Heparin Sodium (Porcine) 5,000 units 10/06/24 06:00 10/06/24 05:13 Heparin Sodium 5,000 Units/Ml Vial SUB-Q 5,000 units Q8HR NEGRITA Administration Melatonin 5 mg 10/06/24 00:10 Melatonin 5 Mg Tablet PO HS PRN Insomnia Perflutren Lipid Microsphere 0 ml 10/06/24 06:24 Perflutren Lipid Microspheres 1.5 Ml Vial Diluted To 10 Ml Total Volume IV PUSH 10/09/24 06:25 ONCE PRN adequate visualization Protocol Prochlorperazine Edisylate 10 mg 10/06/24 00:10 Prochlorperazine Edisylate 10 Mg/2 Ml Vial IV PUSH Q6H PRN Nausea And Vomiting Radiology Results: ITS Impressions Chest X-Ray 10/05/24 20:18 IMPRESSION: No acute cardiopulmonary process. Labs Labs: Laboratory Results - last 24 hr 10/05/24 10/05/24 10/06/24 19:28 22:25 02:07 WBC 8.7 8.2 RBC 4.61 4.45 Hgb 14.6 14.0 Hct 44.7 42.6 MCV 97.0 95.7 MCH 31.7 31.5 MCHC 32.7 32.9 RDW 13.3 13.2 Plt Count 190 178 MPV 11.4 H 11.4 H Immature Gran % (Auto) 0.2 0.2 Neut % (Auto) 73.9 H 74.3 H Lymph % (Auto) 14.2 L 13.3 L [place] % (Auto) 9.7 H 9.7 H Eos % (Auto) 1.5 2.0 Baso % (Auto) 0.5 0.5 Lymph # (Auto) 1.23 1.09 [place] # (Auto) 0.8 H 0.8 H Eos # (Auto) 0.1 0.2 Baso # (Auto) 0.0 0.0 Abs Immat Gran (auto) 0.02 0.02 Absolute Neuts (auto) 6.4 6.1 Absolute Nucleated RBC 0.000 0.000 Nucleated RBC % 0.0 0.0 PT 13.5 INR 1.0 APTT 23.5 Sodium 136 L 137 Potassium 3.9 3.9 Chloride 101 102 Carbon Dioxide 21 L 24 Anion Gap 14 H 11 BUN 24 H 19 H Creatinine 1.02 H 0.83 Estim Creat Clear Calc 35 43 Estimated GFR 52 L > 60 Glucose 148 H 117 H Calcium 9.8 9.6 Magnesium Total Bilirubin 0.5 0.5 AST 26 27 ALT 25 26 Alkaline Phosphatase 82 64 Troponin I < 0.012 0.030 D 0.035 H* NT-Pro-B Natriuret Pep 418 H Total Protein 9.0 H 8.0 Albumin 4.8 4.4 Lipase 212 10/06/24 10/06/24 06:24 06:27 WBC RBC Hgb Hct MCV MCH MCHC RDW Plt Count MPV Immature Gran % (Auto) Neut % (Auto) Lymph % (Auto) [place] % (Auto) Eos % (Auto) Baso % (Auto) Lymph # (Auto) [place] # (Auto) Eos # (Auto) Baso # (Auto) Abs Immat Gran (auto) Absolute Neuts (auto) Absolute Nucleated RBC Nucleated RBC % PT INR APTT Sodium Potassium Chloride Carbon Dioxide Anion Gap BUN Creatinine Estim Creat Clear Calc Estimated GFR Glucose Calcium Magnesium 1.9 Total Bilirubin AST ALT Alkaline Phosphatase Troponin I 0.029 NT-Pro-B Natriuret Pep Total Protein Albumin Lipase Quality VTE Prophylaxis VTE prophylaxis: mechanical ordered and pharmacologic ordered
--- NOTE | 2024-10-06 12:56 | PM.CNCAR ---
Assessment and Plan Assessment and plan (1) Hypertension: Code(s): I10 - Essential (primary) hypertension Status: Acute (2) Palpitations: Code(s): R00.2 - Palpitations Status: Acute (3) Elevated troponin: Code(s): R79.89 - Other specified abnormal findings of blood chemistry Status: Acute Plan 83-year-old female with past medical history of hypertension, anxiety presented with palpitations, hypertensive urgency. She was noted to have elevated troponins. Palpitations -EKG and telemetry telemetry shows sinus rhythm with PACs. Heart rate in the 60s to 90s range -no history of arrhythmia -recommend even monitor for 30 days to evaluate any arrhythmia as cause of her palpitations -check and replace electrolytes to keep potassium greater than 4 and magnesium greater than 2 -TTE prior to discharge -check TSH and free T4 Poorly controlled hypertension with SBP in the 190s -target blood pressure less than 130/80 mm Hg -continue amlodipine p.o. 10 mg daily -add metoprolol p.o. 12.5 mg b.i.d. Elevated troponin without chest pain -troponin leak most likely secondary to poorly controlled hypertension -trend troponin to peak -repeat EKG p.r.n. for any chest pain -recommend outpatient stress test Elevated BNP without signs and symptoms of heart failure -obtain TTE History of Present Illness History of Present Illness Consult date/time: 10/06/24 12:56 Reason For Visit: Atypical chest pain, Palpitations, Hypertension Narrative: 83-year-old female with past medical history of hypertension on amlodipine, anxiety was admitted with chief complaints of palpitations. Troponin were noted to be elevated. Cardiology was consulted for further management. Patient reports off and on palpitations for the past few weeks. She woke up on Sunday morning feeling palpitations. She checked her blood pressure and SBP was 130 mm Hg. She went to the congregational after that, ran some errands, and then returned home. She continued to have palpitations and checked her blood pressure. At this time her SBP was in the 190s. She then presented to the ER. She denies any chest, arm, neck, jaw, or back pain. No shortness of breath, dizziness, lightheadedness, presyncope, syncope, orthopnea, PND. Her blood pressure is fairly well controlled with amlodipine 10 mg daily. Workup: Creatinine: 1.02 at admission Troponin: 0.012-->0.030-->0.035 BNP: 418 EKG: Sinus rhythm, nonspecific ST T wave changes in inferior leads Chest x-ray: Negative for any cardiopulmonary pathology Review of Systems Review of Systems: A complete review of systems was performed and negative other than those mentioned in the [facility] Family History Family History (Updated 10/06/24 @ 01:19 by Tatiana Shearer RN) Mother Colon cancer Social History Social History Smoking status: Never smoker Alcohol intake: never Substance use: never Do You Feel Safe in your Home?: Yes Lack of Transportation: No Lack of Food: Never True Current Housing: I Have Housing Concerned About Future Housing: No Difficulty Paying Gas/Electric Bills: No Difficulty Paying for Meds: No Currently Unemployed: No Education: High School Diploma/GED Difficulty w/ Childcare or Family Care: No Spiritual care concerns: No Meds Home Medications and Allergies Home Medications ?Medication ?Instructions ?Recorded ?Confirmed ?Type amlodipine 10 mg tablet 10 mg PO DAILY 10/06/24 10/06/24 History calcium carbonate (Calcium 600) 1,200 mg PO DAILY 10/06/24 10/06/24 History [id number] 250 mg-dha 90 1 cap PO DAILY 10/06/24 10/06/24 History mg-epa 160 [id number]-zeax capsule (Ocuvite Adult 50 Plus) Allergies Allergy/AdvReac Type Severity Reaction Status Date / Time No Known Allergies Allergy Verified 10/05/24 19:33 Vital Signs Vital Signs - 24 hr 10/05/24 19:19 10/05/24 20:52 10/05/24 23:45 Temperature 36.7 C Pulse Rate 91 88 83 Respiratory Rate 14 19 15 Blood Pressure 188/101 H 169/93 H 159/78 H Pulse Oximetry 99 97 99 Oxygen Delivery Room Air 10/06/24 00:34 10/06/24 01:14 10/06/24 02:00 Temperature 36.6 C Pulse Rate 82 79 76 Respiratory Rate 15 20 Blood Pressure 150/88 H 184/79 H Pulse Oximetry 97 99 Oxygen Delivery 10/06/24 03:10 10/06/24 04:00 10/06/24 04:00 Temperature 36.9 C Pulse Rate 82 81 75 Respiratory Rate 20 Blood Pressure 169/72 H 138/68 Pulse Oximetry 98 Oxygen Delivery 10/06/24 04:00 10/06/24 06:00 10/06/24 08:00 Temperature 36.6 C Pulse Rate 72 78 Respiratory Rate 20 Blood Pressure 145/71 H Pulse Oximetry 97 Oxygen Delivery Room Air 10/06/24 08:00 10/06/24 08:00 10/06/24 10:00 Temperature Pulse Rate 78 83 78 Respiratory Rate 20 Blood Pressure Pulse Oximetry 97 Oxygen Delivery Room Air 10/06/24 12:00 Temperature 36.6 C Pulse Rate 0 L Respiratory Rate 18 Blood Pressure 149/67 H Pulse Oximetry 98 Oxygen Delivery Exam Narrative: General: Alert oriented x3, no acute distress Neck: Supple, no JVD Chest: Bilaterally clear to auscultation, no rales or rhonchi Cardiac: S1, S2 +, regular rate, regular rhythm, no murmurs or rubs Extremities: No pedal edema, no skin rash Neurologic: Alert and oriented x3, no focal neurological deficits Results Labs and Meds 10/06/24 02:07 10/06/24 02:07 Lab results: Cardiac Enzymes 10/05/24 10/05/24 10/06/24 Range/Units 19:28 22:25 02:07 AST 26 27 (14-36) U/L Troponin I < 0.012 0.030 D 0.035 H* (0.000-0.034) ng/mL 10/06/24 Range/Units 06:27 AST (14-36) U/L Troponin I 0.029 (0.000-0.034) ng/mL Coagulation 10/05/24 Range/Units 19:28 PT 13.5 (11.1-14.7) Seconds APTT 23.5 (22.3-36.8) Seconds CBC 10/05/24 10/06/24 Range/Units 19:28 02:07 WBC 8.7 8.2 (4.5-10.0) K/mm3 RBC 4.61 4.45 (4.2-5.4) M/mm3 Hgb 14.6 14.0 (12.0-15.0) g/dL Hct 44.7 42.6 (37.0-47.0) % Plt Count 190 178 (150-375) k/mm3 Lymph # (Auto) 1.23 1.09 (0.9-3.2) K/mm3 [place] # (Auto) 0.8 H 0.8 H (0.1-0.6) K/mm3 Eos # (Auto) 0.1 0.2 (0-0.3) K/mm3 Baso # (Auto) 0.0 0.0 (0.0-0.1) K/mm3 Comprehensive Metabolic Panel 10/05/24 10/06/24 Range/Units 19:28 02:07 Sodium 136 L 137 (137-145) mmol/L Potassium 3.9 3.9 (3.4-5.0) mmol/L Chloride 101 102 (98-107) mmol/L Carbon Dioxide 21 L 24 (22-30) mmol/L BUN 24 H 19 H (7-17) mg/dL Creatinine 1.02 H 0.83 (0.7-1.0) mg/dL Glucose 148 H 117 H (65-110) mg/dL Calcium 9.8 9.6 (8.4-10.2) mg/dL AST 26 27 (14-36) U/L ALT 25 26 (6-35) U/L Alkaline Phosphatase 82 64 (38-126) U/L Total Protein 9.0 H 8.0 (6.3-8.2) g/dL Albumin 4.8 4.4 (3.5-5.1) g/dL Intake and Output 10/05/24 10/06/24 10/06/24 23:59 07:59 15:59 Intake Total 120 240 Balance 120 240 Intake: Oral 120 240 Other: # Unmeasured Voids 1 Number of Bowel Movements Today 1 Patient Weight 10/06/24 23:59 Weight 77.8 kg
[2024-10-06 17:51] LABS: Free T4 Free Thyroxine 1.29 ng/dL (0.78-2.19)
[2024-10-06] MEDS: METOPROLOL TARTRATE 12.5 MG TABLET PO (21:03)
[2024-10-07] VITALS (18 sets, daily range): BP systolic 121–175; BP diastolic 60–76; PULSE 50–97; RESP 16–20; TEMP 36.4–36.7; O2SAT 97–100
[2024-10-07 04:42] LABS: Basophils Percent Auto 0.5 % (0.2-1.2); Eosinophils Absolute Auto 0.4 K/mm3 (0-0.3); Eosinophils Percent Auto 5.1 % (0-4.4); Hematocrit 44.5 % (37.0-47.0); Hemoglobin 14.8 g/dL (12.0-15.0); Immature Granulocyte Absolute 0.02 K/mm3 (0.00-0.031); Immature Granulocyte Percent A 0.3 % (0-0.5); Lymphocytes Absolute Auto 2.12 K/mm3 (0.9-3.2); Lymphocytes Percent Auto 27.6 % (18.3-44.2); Mean Corpuscular HGB Conc 33.3 g/dl (32-36); Mean Corpuscular Hemoglobin 31.8 pg (26-34); Mean Corpuscular Volume 95.5 fl (80-100); Mean Platelet Volume 11.9 fl (7.4-10.4); Monocytes Absolute Auto 0.8 K/mm3 (0.1-0.6); Monocytes Percent Auto 10.9 % (2.6-8.5); Neutrophils Absolute Auto 4.3 K/mm3 (1.3-6.7); Neutrophils Percent Auto 55.6 % (45.5-73.1); Platelet Count Result 188 k/mm3 (150-375); Red Blood Count 4.66 M/mm3 (4.2-5.4); Red Cell Distribution Width 13.4 % (11.5-14.5); White Blood Count 7.7 K/mm3 (4.5-10.0)
[2024-10-07 04:55] LABS: Alanine Aminotransferase 24 U/L (6-35); Albumin Level 4.5 g/dL (3.5-5.1); Alkaline Phosphatase 67 U/L (38-126); Anion Gap 9 mmol/L (4-12); Aspartate Amino Transferase 23 U/L (14-36); Bilirubin,Total 0.8 mg/dL (0.2-1.3); Blood Urea Nitrogen 21 mg/dL (7-17); Calcium 9.7 mg/dL (8.4-10.2); Carbon Dioxide 26 mmol/L (22-30); Chloride 101 mmol/L (98-107); Estimated CRCL calculation 34 ml/min; Estimated Glomerular Filt Rate 49; Glucose 91 mg/dL (65-110); Magnesium 2.2 mg/dL (1.6-2.3); Potassium 4.2 mmol/L (3.4-5.0); Sodium 136 mmol/L (137-145)
[2024-10-07] MEDS: HEPARIN SODIUM 5,000 UNITS/ML VIAL 5000 UNITS SUB-Q ×2 (05:19→18:18)
--- NOTE | 2024-10-07 09:06 | PM.PNCARD ---
Progress Note: A&P Assessment and Plan (1) Hypertension: Code(s): I10 - Essential (primary) hypertension Status: Acute (2) Elevated troponin: Code(s): R79.89 - Other specified abnormal findings of blood chemistry Status: Acute (3) Palpitations: Code(s): R00.2 - Palpitations Status: Acute (4) Aortic stenosis, moderate: Code(s): I35.0 - Nonrheumatic aortic (valve) stenosis Status: Acute Plan 83-year-old female with past medical history of hypertension, anxiety presented with palpitations, hypertensive urgency. She was noted to have elevated troponins. TTE showed LVEF of 70%, grade 1 diastolic dysfunction, moderate to severe aortic stenosis, [id number]-rb-[id number] mitral stenosis, small to moderate pericardial effusion without tamponade, mild pulmonary hypertension. Palpitations -EKG and telemetry telemetry shows sinus rhythm with PACs. Heart rate in the 60s to 90s range -no history of arrhythmia -recommend even monitor for 30 days to evaluate any arrhythmia as cause of her palpitations -check and replace electrolytes to keep potassium greater than 4 and magnesium greater than 2 Poorly controlled hypertension with SBP in the 190s -target blood pressure less than 130/80 mm Hg -continue amlodipine p.o. 10 mg daily -she received clonidine and metoprolol last night and had bradycardia to the 30s during her sleep. She was asymptomatic. Clonidine has been stopped -continue metoprolol 12.5 mg p.o. b.i.d. for now and monitor heart rate. If she is bradycardic with this dose of metoprolol, then stop metoprolol and use and other agent for blood pressure control Elevated troponin without chest pain -troponin leak most likely secondary to poorly controlled hypertension -trend troponin to peak -repeat EKG p.r.n. for any chest pain -recommend outpatient stress test Moderate aortic stenosis with peak velocity of 3.39 m/sec, mean gradient 31 mm Hg and aortic valve area 1 centimeters sq Mild to moderate mitral stenosis Elevated BNP without signs and symptoms of heart failure -outpatient follow-up with structural heart disease to evaluate for further management of valvular heart disease -outpatient HARRY to evaluate severely of mitral valve disease Thank you for allowing us to participate in the care of Ms. Estrada. Cardiology will sign off. Please call us with any questions Subjective Date/time seen: 10/07/24 09:06 Interval history: Reason for encounter: Poorly controlled hypertension, palpitations, elevated troponin Relevant history: 83-year-old female with past medical history of hypertension, anxiety presented with palpitations, hypertensive urgency. She was noted to have elevated troponins. TTE showed LVEF of 70%, grade 1 diastolic dysfunction, moderate to severe aortic stenosis, ypxf-ju-xlsrvmek mitral stenosis, small to moderate pericardial effusion without tamponade, mild pulmonary hypertension. Interval history: Patient denies any chest pain, shortness of breath, dizziness, lightheadedness, fever, chills, headache, nausea, emesis. She was bradycardic last night with heart rate in the 30s. She remained asymptomatic during this time. She received clonidine and metoprolol last night which could be the cause for her bradycardia. Clonidine has been stopped. Review of Systems Review of Systems: Complete review of systems was performed and negative other than those mentioned in the HPI Exam Narrative: General: Alert oriented x3, no acute distress Neck: Supple, no JVD Chest: Bilaterally clear to auscultation, no rales or rhonchi Cardiac: S1, S2 +, regular rate, regular rhythm, no murmurs or rubs Extremities: No pedal edema, no skin rash Neurologic: Alert and oriented x3, no focal neurological deficits Objective Data Vital Signs Vital Signs: Vital Signs - 24 hr 10/06/24 10:00 10/06/24 12:00 10/06/24 12:00 Temperature 36.6 C Pulse Rate 78 70 79 Respiratory Rate 18 Blood Pressure 149/67 H Pulse Oximetry 98 Oxygen Delivery 10/06/24 12:00 10/06/24 14:00 10/06/24 16:00 Temperature Pulse Rate 78 75 74 Respiratory Rate 20 Blood Pressure Pulse Oximetry 97 Oxygen Delivery Room Air 10/06/24 16:00 10/06/24 16:00 10/06/24 18:00 Temperature 36.6 C Pulse Rate 74 75 79 Respiratory Rate 20 16 Blood Pressure 148/76 H Pulse Oximetry 97 98 Oxygen Delivery Room Air 10/06/24 20:00 10/06/24 20:00 10/06/24 20:00 Temperature 36.8 C Pulse Rate 74 73 Respiratory Rate 14 Blood Pressure 125/58 L Pulse Oximetry 98 98 Oxygen Delivery Room Air 10/06/24 21:03 10/06/24 22:00 10/06/24 23:25 Temperature Pulse Rate 74 75 Respiratory Rate Blood Pressure Pulse Oximetry 98 Oxygen Delivery Room Air 10/06/24 23:54 10/07/24 00:00 10/07/24 02:00 Temperature 36.7 C Pulse Rate 48 L 69 50 L Respiratory Rate 16 Blood Pressure 146/93 H Pulse Oximetry 99 Oxygen Delivery 10/07/24 04:00 10/07/24 04:00 10/07/24 04:00 Temperature 36.6 C Pulse Rate 82 74 Respiratory Rate 16 Blood Pressure 156/75 H Pulse Oximetry 98 100 Oxygen Delivery Room Air 10/07/24 06:00 10/07/24 08:04 Temperature 36.7 C Pulse Rate 91 71 Respiratory Rate 20 Blood Pressure 121/60 Pulse Oximetry 97 Oxygen Delivery Intake/Output Intake/Output: Intake & Output 10/04/24 10/05/24 10/06/24 10/07/24 23:59 23:59 23:59 23:59 Intake Total 1440 890 Output Total 500 Balance 940 890 Meds/Results Medications: Active Medications Generic Name Dose Route Start Last Admin Trade Name Freq PRN Reason Stop Dose Admin Acetaminophen 650 mg 10/06/24 00:10 Acetaminophen 325 Mg Tablet PO Q4H PRN Mild Pain (1-3) or Fever Amlodipine Besylate 10 mg 10/06/24 02:05 10/06/24 02:58 Amlodipine Besylate 10 Mg Tablet PO 10 mg DAILY [facility] Administration Aspirin 81 mg 10/06/24 08:00 10/06/24 09:11 Aspirin 81 Mg Chewable Tablet PO 81 mg DAILY@0800 [facility] Administration Bisacodyl 5 mg 10/06/24 00:10 Bisacodyl 5 Mg Tablet Ec PO DAILY PRN Constipation Calcium Carbonate 1,000 mg 10/07/24 09:00 Calcium Carbonate (Oscal) 500 Mg Tablet PO QAM [facility] Heparin Sodium (Porcine) 5,000 units 10/06/24 06:00 10/07/24 05:19 Heparin Sodium 5,000 Units/Ml Vial SUB-Q 5,000 units Q8HR [facility] Administration Melatonin 5 mg 10/06/24 00:10 Melatonin 5 Mg Tablet PO HS PRN Insomnia Metoprolol Tartrate 12.5 mg 10/06/24 21:00 10/06/24 21:03 Metoprolol Tartrate 12.5 Mg Tablet PO 12.5 mg Q12HR [facility] Administration Multivitamins/Minerals 1 tablet 10/07/24 09:00 Opti-Gen Tab PO DAILY [facility] Perflutren Lipid Microsphere 0 ml 10/06/24 06:24 Perflutren Lipid Microspheres 1.5 Ml Vial Diluted To 10 Ml Total Volume IV PUSH 10/09/24 06:25 ONCE PRN adequate visualization Protocol Prochlorperazine Edisylate 10 mg 10/06/24 00:10 Prochlorperazine Edisylate 10 Mg/2 Ml Vial IV PUSH Q6H PRN Nausea And Vomiting Radiology Results: ITS Impressions Chest X-Ray 10/05/24 20:18 IMPRESSION: No acute cardiopulmonary process. Labs Labs: Laboratory Results - last 24 hr 10/06/24 10/07/24 02:07 04:09 WBC 7.7 RBC 4.66 Hgb 14.8 Hct 44.5 MCV 95.5 MCH 31.8 MCHC 33.3 RDW 13.4 Plt Count 188 MPV 11.9 H Immature Gran % (Auto) 0.3 Neut % (Auto) 55.6 Lymph % (Auto) 27.6 [place] % (Auto) 10.9 H Eos % (Auto) 5.1 H Baso % (Auto) 0.5 Lymph # (Auto) 2.12 [place] # (Auto) 0.8 H Eos # (Auto) 0.4 H Baso # (Auto) 0.0 Abs Immat Gran (auto) 0.02 Absolute Neuts (auto) 4.3 Absolute Nucleated RBC 0.000 Nucleated RBC % 0.0 Sodium 136 L Potassium 4.2 Chloride 101 Carbon Dioxide 26 Anion Gap 9 BUN 21 H Creatinine 1.07 H Estim Creat Clear Calc 34 Estimated GFR 49 L Glucose 91 Calcium 9.7 Magnesium 2.2 Total Bilirubin 0.8 AST 23 ALT 24 Alkaline Phosphatase 67 Total Protein 8.0 Albumin 4.5 TSH (Reflex) 1.890 Free T4 1.29 Imaging My impression: LVEF 65-70%, grade 1 diastolic dysfunction Moderate aortic valve stenosis with peak velocity of 3.39 m/sec, mean gradient 31 mm Hg and aortic valve area of 1 cm2 [id number] mitral stenosis Mild pulmonary hypertension Small to moderate pericardial effusion without tamponade
[2024-10-07] MEDS: METOPROLOL TARTRATE 12.5 MG TABLET PO ×2 (09:51→21:06)
[2024-10-07] MEDS: ASPIRIN 81 MG CHEWABLE TABLET PO (09:51)
[2024-10-07] MEDS: CALCIUM CARBONATE (OSCAL) 500 MG TABLET 1000 MG PO (09:51)
[2024-10-07] MEDS: amLODIPine BESYLATE 10 MG TABLET PO (09:52)
[2024-10-07] MEDS: OPTI-GEN TAB 1 TABLET PO (09:52)
--- NOTE | 2024-10-07 10:09 | P.PNIM_ITS ---
Progress Note: A&P Assessment and Plan (1) Palpitations: Code(s): R00.2 - Palpitations Status: Acute Assessment and Plan: * Cardiology consult, appreciate recommendations. * HARRY showed: Summary 1. Complete two-dimensional, color flow and Doppler transthoracic echocardiogram is performed. 2. Left ventricular systolic function is hyperdynamic, estimated at >70%. 3. There is moderately increased left ventricular wall thickness. 4. The left ventricular diastolic function is grade I diastolic dysfunction. 5. Left atrial chamber dimension is severely enlarged. 6. There is moderate to severe aortic valve stenosis with a peak velocity of 339 cm/s, mean gradient of 31 mmHg, and aortic valve area of 1.0 cm2. 7. There is moderate aortic valve calcification. 8. There is mild to moderate mitral valve stenosis. 9. There is moderate mitral valve calcification. 10. There is mild tricuspid valve regurgitation. 11. Mild pulmonary hypertension, estimated pulmonary arterial systolic pressure is 40 mmHg. 12. small to moderate pericardial effusion. No tamponade. * she received clonidine and metoprolol last night and had bradycardia to the 30s during her sleep. She was asymptomatic. Clonidine has been stopped. * continue metoprolol 12.5 mg p.o. b.i.d. for now and monitor heart rate. If she is bradycardic with this dose of metoprolol, then stop metoprolol and use and other agent for blood pressure control. * Metoprolol 12.5 mg PO BID * TSH 1.890 * Free T4 1.29 * Creatinine: 1.02 at admission, currently 0.83. * Troponin: 0.012-->0.030-->0.035-->0.029 * BNP: 418 * Will need a 30 day holter monitor at discharge. (2) Hypertension: Code(s): I10 - Essential (primary) hypertension Status: Acute Assessment and Plan: * Blood pressure 121/60. * Amlodipine 10 mg PO daily. * Metoprolol 12.5 mg PO BID added. Subjective Date/time seen: 10/07/24 10:09 Interval history: Patient sitting up on side of bed. Family at bedside. Patient denies chest pain, palpitations, headache, dizziness, nausea, or vomiting. Review of Systems Review of Systems: All systems reviewed & are unremarkable except as noted in HPI and below Exam Const: General: comfortable and no acute distress Resp: Effort & Inspection: normal respiratory effort Auscultation: clear to auscultation bilaterally Cardio: Rate: regular rate Rhythm: regular rhythm Other: Telemetry- SR 77 GI: GI Palp: Yes Soft to palpation Auscultation: normal bowel sounds Neuro: Speech: normal speech Extrem: General: no pedal edema Psych: Mental Status: mental status grossly normal Affect: normal affect Objective Data Vital Signs Vital Signs: Vital Signs - 24 hr 10/06/24 12:00 10/06/24 12:00 10/06/24 12:00 Temperature 97.8 F Pulse Rate 70 79 78 Respiratory Rate 18 20 Blood Pressure 149/67 H Pulse Oximetry 98 97 Oxygen Delivery Room Air 10/06/24 14:00 10/06/24 16:00 10/06/24 16:00 Temperature Pulse Rate 75 74 74 Respiratory Rate 20 Blood Pressure Pulse Oximetry 97 Oxygen Delivery Room Air 10/06/24 16:00 10/06/24 18:00 10/06/24 20:00 Temperature 97.9 F 98.2 F Pulse Rate 75 79 74 Respiratory Rate 16 14 Blood Pressure 148/76 H 125/58 L Pulse Oximetry 98 98 Oxygen Delivery 10/06/24 20:00 10/06/24 20:00 10/06/24 21:03 Temperature Pulse Rate 73 74 Respiratory Rate Blood Pressure Pulse Oximetry 98 Oxygen Delivery Room Air 10/06/24 22:00 10/06/24 23:25 10/06/24 23:54 Temperature 98.0 F Pulse Rate 75 48 L Respiratory Rate 16 Blood Pressure 146/93 H Pulse Oximetry 98 99 Oxygen Delivery Room Air 10/07/24 00:00 10/07/24 02:00 10/07/24 04:00 Temperature Pulse Rate 69 50 L Respiratory Rate Blood Pressure Pulse Oximetry 98 Oxygen Delivery Room Air 10/07/24 04:00 10/07/24 04:00 10/07/24 06:00 Temperature 97.8 F Pulse Rate 82 74 91 Respiratory Rate 16 Blood Pressure 156/75 H Pulse Oximetry 100 Oxygen Delivery 10/07/24 08:04 10/07/24 09:51 Temperature 98.1 F Pulse Rate 71 78 Respiratory Rate 20 Blood Pressure 121/60 Pulse Oximetry 97 Oxygen Delivery Intake/Output Intake/Output: Intake & Output 10/04/24 10/05/24 10/06/24 10/07/24 23:59 23:59 23:59 23:59 Intake Total 1440 890 Output Total 500 Balance 940 890 Meds/Results Medications: Active Medications Generic Name Dose Route Start Last Admin Trade Name Freq PRN Reason Stop Dose Admin Acetaminophen 650 mg 10/06/24 00:10 Acetaminophen 325 Mg Tablet PO Q4H PRN Mild Pain (1-3) or Fever Amlodipine Besylate 10 mg 10/06/24 02:05 10/07/24 09:52 Amlodipine Besylate 10 Mg Tablet PO 10 mg DAILY [facility] Administration Aspirin 81 mg 10/06/24 08:00 10/07/24 09:51 Aspirin 81 Mg Chewable Tablet PO 81 mg DAILY@0800 [facility] Administration Bisacodyl 5 mg 10/06/24 00:10 Bisacodyl 5 Mg Tablet Ec PO DAILY PRN Constipation Calcium Carbonate 1,000 mg 10/07/24 09:00 10/07/24 09:51 Calcium Carbonate (Oscal) 500 Mg Tablet PO 1,000 mg QAM [facility] Administration Heparin Sodium (Porcine) 5,000 units 10/06/24 06:00 10/07/24 05:19 Heparin Sodium 5,000 Units/Ml Vial SUB-Q 5,000 units Q8HR [facility] Administration Melatonin 5 mg 10/06/24 00:10 Melatonin 5 Mg Tablet PO HS PRN Insomnia Metoprolol Tartrate 12.5 mg 10/06/24 21:00 10/07/24 09:51 Metoprolol Tartrate 12.5 Mg Tablet PO 12.5 mg Q12HR [facility] Administration Multivitamins/Minerals 1 tablet 10/07/24 09:00 10/07/24 09:52 Opti-Gen Tab PO 1 tablet DAILY [facility] Administration Perflutren Lipid Microsphere 0 ml 10/06/24 06:24 Perflutren Lipid Microspheres 1.5 Ml Vial Diluted To 10 Ml Total Volume IV PUSH 10/09/24 06:25 ONCE PRN adequate visualization Protocol Prochlorperazine Edisylate 10 mg 10/06/24 00:10 Prochlorperazine Edisylate 10 Mg/2 Ml Vial IV PUSH Q6H PRN Nausea And Vomiting Radiology Results: ITS Impressions Chest X-Ray 10/05/24 20:18 IMPRESSION: No acute cardiopulmonary process. Labs Labs: Laboratory Results - last 24 hr 10/06/24 10/07/24 02:07 04:09 WBC 7.7 RBC 4.66 Hgb 14.8 Hct 44.5 MCV 95.5 MCH 31.8 MCHC 33.3 RDW 13.4 Plt Count 188 MPV 11.9 H Immature Gran % (Auto) 0.3 Neut % (Auto) 55.6 Lymph % (Auto) 27.6 [place] % (Auto) 10.9 H Eos % (Auto) 5.1 H Baso % (Auto) 0.5 Lymph # (Auto) 2.12 [place] # (Auto) 0.8 H Eos # (Auto) 0.4 H Baso # (Auto) 0.0 Abs Immat Gran (auto) 0.02 Absolute Neuts (auto) 4.3 Absolute Nucleated RBC 0.000 Nucleated RBC % 0.0 Sodium 136 L Potassium 4.2 Chloride 101 Carbon Dioxide 26 Anion Gap 9 BUN 21 H Creatinine 1.07 H Estim Creat Clear Calc 34 Estimated GFR 49 L Glucose 91 Calcium 9.7 Magnesium 2.2 Total Bilirubin 0.8 AST 23 ALT 24 Alkaline Phosphatase 67 Total Protein 8.0 Albumin 4.5 TSH (Reflex) 1.890 Free T4 1.29 Quality VTE Prophylaxis VTE prophylaxis: mechanical ordered and pharmacologic ordered
[2024-10-08] VITALS (10 sets, daily range): BP systolic 147–174; BP diastolic 58–76; PULSE 48–73; RESP 18; TEMP 36.4; O2SAT 94–97
[2024-10-08] MEDS: HEPARIN SODIUM 5,000 UNITS/ML VIAL 5000 UNITS SUB-Q (02:47)
[2024-10-08 04:28] LABS: Basophils Percent Auto 0.4 % (0.2-1.2); Eosinophils Absolute Auto 0.2 K/mm3 (0-0.3); Eosinophils Percent Auto 3.6 % (0-4.4); Hematocrit 39.8 % (37.0-47.0); Hemoglobin 13.3 g/dL (12.0-15.0); Immature Granulocyte Absolute 0.02 K/mm3 (0.00-0.031); Immature Granulocyte Percent A 0.3 % (0-0.5); Lymphocytes Absolute Auto 0.99 K/mm3 (0.9-3.2); Lymphocytes Percent Auto 14.7 % (18.3-44.2); Mean Corpuscular HGB Conc 33.4 g/dl (32-36); Mean Corpuscular Hemoglobin 31.6 pg (26-34); Mean Corpuscular Volume 94.5 fl (80-100); Mean Platelet Volume 11.7 fl (7.4-10.4); Monocytes Absolute Auto 0.7 K/mm3 (0.1-0.6); Monocytes Percent Auto 10.7 % (2.6-8.5); Neutrophils Absolute Auto 4.7 K/mm3 (1.3-6.7); Neutrophils Percent Auto 70.3 % (45.5-73.1); Platelet Count Result 180 k/mm3 (150-375); Red Blood Count 4.21 M/mm3 (4.2-5.4); Red Cell Distribution Width 13.2 % (11.5-14.5); White Blood Count 6.7 K/mm3 (4.5-10.0)
[2024-10-08 04:41] LABS: Alanine Aminotransferase 21 U/L (6-35); Alkaline Phosphatase 61 U/L (38-126); Anion Gap 10 mmol/L (4-12); Aspartate Amino Transferase 23 U/L (14-36); Bilirubin,Total 0.5 mg/dL (0.2-1.3); Blood Urea Nitrogen 23 mg/dL (7-17); Calcium 9.4 mg/dL (8.4-10.2); Carbon Dioxide 25 mmol/L (22-30); Chloride 102 mmol/L (98-107); Estimated CRCL calculation 38 ml/min; Estimated Glomerular Filt Rate 55; Glucose 98 mg/dL (65-110); Potassium 3.9 mmol/L (3.4-5.0); Sodium 137 mmol/L (137-145)
[2024-10-08] MEDS: amLODIPine BESYLATE 10 MG TABLET PO (08:09)
[2024-10-08] MEDS: OPTI-GEN TAB 1 TABLET PO (08:09)
[2024-10-08] MEDS: CALCIUM CARBONATE (OSCAL) 500 MG TABLET 1000 MG PO (08:10)
[2024-10-08] MEDS: METOPROLOL TARTRATE 12.5 MG TABLET PO (08:10)
[2024-10-08] MEDS: ASPIRIN 81 MG CHEWABLE TABLET PO (08:10)
--- NOTE | 2024-10-08 09:21 | P.PNIM_ITS ---
Progress Note: A&P Assessment and Plan (1) Palpitations: Code(s): R00.2 - Palpitations Status: Acute (2) Hypertension: Code(s): I10 - Essential (primary) hypertension Status: Acute Plan 83-year-old female with past medical history of hypertension, anxiety presented with palpitations, hypertensive urgency. She was noted to have elevated troponins. TTE showed LVEF of 70%, grade 1 diastolic dysfunction, moderate to severe aortic stenosis, [id number] mitral stenosis, small to moderate pericardial effusion without tamponade, mild pulmonary hypertension. Palpitations EKG and telemetry telemetry shows sinus rhythm with PACs. Cardiology recommends event monitor for 30 days to evaluate any arrhythmia as cause of her palpitations keep potassium greater than 4 and magnesium greater than 2. Continue to Monitor per PCP Hypertension urgency with SBP in the 190s continue amlodipine p.o. 10 mg daily Clonidine has been stopped due to bradycardia Now blood pressure is controlled, continue metoprolol 12.5 mg p.o. b.i.d. per operator and truck driver recommendation Elevated troponin without chest pain secondary to poorly controlled hypertension repeat EKG p.r.n. for any chest pain recommend outpatient stress test Moderate aortic stenosis peak velocity of 3.39 m/sec, mean gradient 31 mm Hg and aortic valve area 1 centimeters sq Mild to moderate mitral stenosis Elevated BNP without signs and symptoms of heart failure Pressure recommends outpatient follow-up with structural heart disease to evaluate for further management of valvular heart disease outpatient HARRY to evaluate severely of mitral valve disease Subjective Date/time seen: 10/08/24 09:21 Interval history: I saw examined the patient in presents of patient's nurse in the step-down ICU Patient denies chest pain, palpitations, headache, dizziness, nausea, or vomiting. Blood pressure is better controlled Exam Narrative: GENERAL: Pleasant, in no acute distress. Well-nourished. - EYES: EOMI. Anicteric. - HENT: Moist mucous membranes. - LUNGS: Clear to auscultation bilateral ly, no wheezing, rhonchi, or rales. - CARDIOVASCULAR: Regular rate and rhyth m. No murmur. No JVD. - ABDOMEN: Soft, non-tender and non-dist ended. No palpable masses. - EXTREMITIES: No edema. Peripheral puls es 2+. Non-tender. - NEUROLOGIC: No focal neurological defi cits. CN II-XII grossly intact. - PSYCHIATRIC: Awake, Alert and oriented x 3. Appropriate mood and affect. - SKIN: No rashes or lesions. Warm. - LYMPH: No cervical lymphadenopathy. Objective Data Vital Signs Vital Signs: Vital Signs - 24 hr 10/07/24 09:51 10/07/24 10:00 10/07/24 11:50 Temperature 97.7 F Pulse Rate 78 97 72 Respiratory Rate 20 Blood Pressure 175/70 H Pulse Oximetry 99 Oxygen Delivery 10/07/24 12:00 10/07/24 14:00 10/07/24 15:57 Temperature 97.9 F Pulse Rate 72 55 L 55 L Respiratory Rate 18 Blood Pressure 144/71 H Pulse Oximetry 97 Oxygen Delivery 10/07/24 16:00 10/07/24 16:00 10/07/24 18:00 Temperature Pulse Rate 67 86 Respiratory Rate Blood Pressure Pulse Oximetry 98 Oxygen Delivery Room Air 10/07/24 20:00 10/07/24 20:00 10/07/24 21:06 Temperature 97.7 F Pulse Rate 77 73 74 Respiratory Rate 18 Blood Pressure 150/76 H Pulse Oximetry 98 Oxygen Delivery 10/07/24 22:00 10/07/24 23:32 10/08/24 00:00 Temperature 97.5 F L Pulse Rate 65 62 48 L Respiratory Rate 18 Blood Pressure 146/74 H Pulse Oximetry 97 Oxygen Delivery 10/08/24 02:00 10/08/24 03:58 10/08/24 04:00 Temperature 97.5 F L Pulse Rate 66 70 70 Respiratory Rate 18 Blood Pressure 174/58 H Pulse Oximetry 94 Oxygen Delivery 10/08/24 06:00 10/08/24 06:00 10/08/24 08:00 Temperature Pulse Rate 59 L 73 Respiratory Rate 18 Blood Pressure 147/76 H Pulse Oximetry 97 Oxygen Delivery Room Air 10/08/24 08:07 10/08/24 08:10 10/08/24 08:59 Temperature 97.5 F L Pulse Rate 64 73 Respiratory Rate 18 Blood Pressure 154/64 H Pulse Oximetry 97 97 Oxygen Delivery Room Air Intake/Output Intake/Output: Intake & Output 10/05/24 10/06/24 10/07/24 10/08/24 23:59 23:59 23:59 23:59 Intake Total 1440 1920 1820 Output Total 500 Balance 940 1920 1820 Meds/Results Medications: Active Medications Generic Name Dose Route Start Last Admin Trade Name Freq PRN Reason Stop Dose Admin Acetaminophen 650 mg 10/06/24 00:10 Acetaminophen 325 Mg Tablet PO Q4H PRN Mild Pain (1-3) or Fever Amlodipine Besylate 10 mg 10/06/24 02:05 10/08/24 08:09 Amlodipine Besylate 10 Mg Tablet PO 10 mg DAILY NEGRITA Administration Aspirin 81 mg 10/06/24 08:00 10/08/24 08:10 Aspirin 81 Mg Chewable Tablet PO 81 mg DAILY@0800 NEGRITA Administration Bisacodyl 5 mg 10/06/24 00:10 Bisacodyl 5 Mg Tablet Ec PO DAILY PRN Constipation Calcium Carbonate 1,000 mg 10/07/24 09:00 10/08/24 08:10 Calcium Carbonate (Oscal) 500 Mg Tablet PO 1,000 mg QAM NEGRITA Administration Heparin Sodium (Porcine) 5,000 units 10/08/24 02:00 10/08/24 02:47 Heparin Sodium 5,000 Units/Ml Vial SUB-Q 5,000 units Q8H NEGRITA Administration Melatonin 5 mg 10/06/24 00:10 Melatonin 5 Mg Tablet PO HS PRN Insomnia Metoprolol Tartrate 12.5 mg 10/06/24 21:00 10/08/24 08:10 Metoprolol Tartrate 12.5 Mg Tablet PO 12.5 mg Q12HR NEGRITA Administration Multivitamins/Minerals 1 tablet 10/07/24 09:00 10/08/24 08:09 Opti-Gen Tab PO 1 tablet DAILY NEGRITA Administration Perflutren Lipid Microsphere 0 ml 10/06/24 06:24 Perflutren Lipid Microspheres 1.5 Ml Vial Diluted To 10 Ml Total Volume IV PUSH 10/09/24 06:25 ONCE PRN adequate visualization Protocol Prochlorperazine Edisylate 10 mg 10/06/24 00:10 Prochlorperazine Edisylate 10 Mg/2 Ml Vial IV PUSH Q6H PRN Nausea And Vomiting Radiology Results: ITS Impressions Chest X-Ray 10/05/24 20:18 IMPRESSION: No acute cardiopulmonary process. Labs Labs: Laboratory Results - last 24 hr 10/08/24 04:02 WBC 6.7 RBC 4.21 Hgb 13.3 Hct 39.8 MCV 94.5 MCH 31.6 MCHC 33.4 RDW 13.2 Plt Count 180 MPV 11.7 H Immature Gran % (Auto) 0.3 Neut % (Auto) 70.3 Lymph % (Auto) 14.7 L [place] % (Auto) 10.7 H Eos % (Auto) 3.6 Baso % (Auto) 0.4 Lymph # (Auto) 0.99 [place] # (Auto) 0.7 H Eos # (Auto) 0.2 Baso # (Auto) 0.0 Abs Immat Gran (auto) 0.02 Absolute Neuts (auto) 4.7 Absolute Nucleated RBC 0.000 Nucleated RBC % 0.0 Sodium 137 Potassium 3.9 Chloride 102 Carbon Dioxide 25 Anion Gap 10 BUN 23 H Creatinine 0.96 Estim Creat Clear Calc 38 Estimated GFR 55 L Glucose 98 Calcium 9.4 Magnesium 2.0 Total Bilirubin 0.5 AST 23 ALT 21 Alkaline Phosphatase 61 Total Protein 7.0 Albumin 4.0
--- NOTE | 2024-10-08 09:54 | PM.PNCARD ---
Progress Note: A&P Assessment and Plan (1) Hypertension: Code(s): I10 - Essential (primary) hypertension Status: Acute (2) Elevated troponin: Code(s): R79.89 - Other specified abnormal findings of blood chemistry Status: Acute (3) Palpitations: Code(s): R00.2 - Palpitations Status: Acute (4) Aortic stenosis, moderate: Code(s): I35.0 - Nonrheumatic aortic (valve) stenosis Status: Acute Plan 83-year-old female with past medical history of hypertension, anxiety presented with palpitations, hypertensive urgency. She was noted to have elevated troponins. TTE showed LVEF of 70%, grade 1 diastolic dysfunction, moderate to severe aortic stenosis, [id number] mitral stenosis, small to moderate pericardial effusion without tamponade, mild pulmonary hypertension. Palpitations-sinus rhythm with frequent PACs -30 day event monitor at discharge -check and replace electrolytes to keep potassium greater than 4 and magnesium greater than 2 Hypertension-better control but systolic still in the 140-150s range -given moderate to severe aortic stenosis recommend keeping systolic closer to 130-140 mm Hg -continue amlodipine p.o. 10 mg daily -continue metoprolol 12.5 mg p.o. b.i.d. Elevated troponin without chest pain most likely secondary to hypertensive urgency -given moderate to severe aortic stenosis, avoid stress test and consider coronary CTA or diagnostic cardiac catheterization while evaluating for TAVR Moderate aortic stenosis with peak velocity of 3.39 m/sec, mean gradient 31 mm Hg and aortic valve area 1 cm2 Mild to moderate mitral stenosis Elevated BNP without signs and symptoms of heart failure -follow-up echo in 6 months -outpatient follow-up with structural heart disease to evaluate for TAVR -outpatient HARRY to evaluate severely of mitral valve disease Thank you for allowing us to participate in the care of Ms. Estrada. Cardiology will sign off. Please call us with any questions Subjective Date/time seen: 10/08/24 09:54 Interval history: Reason for encounter: Poorly controlled hypertension, palpitations, elevated troponin Relevant history: 83-year-old female with past medical history of hypertension, anxiety presented with palpitations, hypertensive urgency. She was noted to have elevated troponins. TTE showed LVEF of 70%, grade 1 diastolic dysfunction, moderate to severe aortic stenosis, [id number] mitral stenosis, small to moderate pericardial effusion without tamponade, mild pulmonary hypertension. Interval history: No chest pain, shortness of breath. Heart rates dipped to the 40s while sleeping at night but remain in the 70s during the day. She was asymptomatic Review of Systems Review of Systems: Complete review of systems was performed and negative other than those mentioned in the HPI Exam Narrative: General: Alert oriented x3, no acute distress Neck: Supple, no JVD Chest: Bilaterally clear to auscultation, no rales or rhonchi Cardiac: S1, S2 +, regular rate, regular rhythm, no murmurs or rubs Extremities: No pedal edema, no skin rash Neurologic: Alert and oriented x3, no focal neurological deficits Objective Data Vital Signs Vital Signs: Vital Signs - 24 hr 10/07/24 10:00 10/07/24 11:50 10/07/24 12:00 Temperature 36.5 C Pulse Rate 97 72 72 Respiratory Rate 20 Blood Pressure 175/70 H Pulse Oximetry 99 Oxygen Delivery 10/07/24 14:00 10/07/24 15:57 10/07/24 16:00 Temperature 36.6 C Pulse Rate 55 L 55 L Respiratory Rate 18 Blood Pressure 144/71 H Pulse Oximetry 97 98 Oxygen Delivery Room Air 10/07/24 16:00 10/07/24 18:00 10/07/24 20:00 Temperature 36.5 C Pulse Rate 67 86 77 Respiratory Rate 18 Blood Pressure 150/76 H Pulse Oximetry 98 Oxygen Delivery 10/07/24 20:00 10/07/24 21:06 10/07/24 22:00 Temperature Pulse Rate 73 74 65 Respiratory Rate Blood Pressure Pulse Oximetry Oxygen Delivery 10/07/24 23:32 10/08/24 00:00 10/08/24 02:00 Temperature 36.4 C L Pulse Rate 62 48 L 66 Respiratory Rate 18 Blood Pressure 146/74 H Pulse Oximetry 97 Oxygen Delivery 10/08/24 03:58 10/08/24 04:00 10/08/24 06:00 Temperature 36.4 C L Pulse Rate 70 70 Respiratory Rate 18 Blood Pressure 174/58 H 147/76 H Pulse Oximetry 94 Oxygen Delivery 10/08/24 06:00 10/08/24 08:00 10/08/24 08:00 Temperature Pulse Rate 59 L 73 73 Respiratory Rate 18 Blood Pressure Pulse Oximetry 97 Oxygen Delivery Room Air 10/08/24 08:07 10/08/24 08:10 10/08/24 08:59 Temperature 36.4 C L Pulse Rate 64 73 Respiratory Rate 18 Blood Pressure 154/64 H Pulse Oximetry 97 97 Oxygen Delivery Room Air Intake/Output Intake/Output: Intake & Output 10/05/24 10/06/24 10/07/24 10/08/24 23:59 23:59 23:59 23:59 Intake Total 1440 1920 1820 Output Total 500 Balance 940 1920 1820 Meds/Results Medications: Active Medications Generic Name Dose Route Start Last Admin Trade Name Freq PRN Reason Stop Dose Admin Acetaminophen 650 mg 10/06/24 00:10 Acetaminophen 325 Mg Tablet PO Q4H PRN Mild Pain (1-3) or Fever Amlodipine Besylate 10 mg 10/06/24 02:05 10/08/24 08:09 Amlodipine Besylate 10 Mg Tablet PO 10 mg DAILY NEGRITA Administration Aspirin 81 mg 10/06/24 08:00 10/08/24 08:10 Aspirin 81 Mg Chewable Tablet PO 81 mg DAILY@0800 NEGRITA Administration Bisacodyl 5 mg 10/06/24 00:10 Bisacodyl 5 Mg Tablet Ec PO DAILY PRN Constipation Calcium Carbonate 1,000 mg 10/07/24 09:00 10/08/24 08:10 Calcium Carbonate (Oscal) 500 Mg Tablet PO 1,000 mg QAM NEGRITA Administration Heparin Sodium (Porcine) 5,000 units 10/08/24 02:00 10/08/24 02:47 Heparin Sodium 5,000 Units/Ml Vial SUB-Q 5,000 units Q8H NEGRITA Administration Melatonin 5 mg 10/06/24 00:10 Melatonin 5 Mg Tablet PO HS PRN Insomnia Metoprolol Tartrate 12.5 mg 10/06/24 21:00 10/08/24 08:10 Metoprolol Tartrate 12.5 Mg Tablet PO 12.5 mg Q12HR NEGRITA Administration Multivitamins/Minerals 1 tablet 10/07/24 09:00 10/08/24 08:09 Opti-Gen Tab PO 1 tablet DAILY NEGRITA Administration Perflutren Lipid Microsphere 0 ml 10/06/24 06:24 Perflutren Lipid Microspheres 1.5 Ml Vial Diluted To 10 Ml Total Volume IV PUSH 10/09/24 06:25 ONCE PRN adequate visualization Protocol Prochlorperazine Edisylate 10 mg 10/06/24 00:10 Prochlorperazine Edisylate 10 Mg/2 Ml Vial IV PUSH Q6H PRN Nausea And Vomiting Radiology Results: ITS Impressions Chest X-Ray 10/05/24 20:18 IMPRESSION: No acute cardiopulmonary process. Labs Labs: Laboratory Results - last 24 hr 10/08/24 04:02 WBC 6.7 RBC 4.21 Hgb 13.3 Hct 39.8 MCV 94.5 MCH 31.6 MCHC 33.4 RDW 13.2 Plt Count 180 MPV 11.7 H Immature Gran % (Auto) 0.3 Neut % (Auto) 70.3 Lymph % (Auto) 14.7 L [place] % (Auto) 10.7 H Eos % (Auto) 3.6 Baso % (Auto) 0.4 Lymph # (Auto) 0.99 [place] # (Auto) 0.7 H Eos # (Auto) 0.2 Baso # (Auto) 0.0 Abs Immat Gran (auto) 0.02 Absolute Neuts (auto) 4.7 Absolute Nucleated RBC 0.000 Nucleated RBC % 0.0 Sodium 137 Potassium 3.9 Chloride 102 Carbon Dioxide 25 Anion Gap 10 BUN 23 H Creatinine 0.96 Estim Creat Clear Calc 38 Estimated GFR 55 L Glucose 98 Calcium 9.4 Magnesium 2.0 Total Bilirubin 0.5 AST 23 ALT 21 Alkaline Phosphatase 61 Total Protein 7.0 Albumin 4.0
--- NOTE | 2024-10-08 11:01 | P.DS_ITS ---
DS: Admitting Diagnosis Discharge Date 10/08/24 Admitting Diagnosis Palpitation DS: Discharge Diagnosis Discharge Diagnosis (1) Palpitations: Code(s): R00.2 - Palpitations Status: Acute (2) Hypertension: Code(s): I10 - Essential (primary) hypertension Status: Acute DS: Summary Hospital Course Hospital Course: 83-year-old female with past medical history of hypertension, anxiety presented with palpitations, hypertensive urgency. She was noted to have elevated troponins. TTE showed LVEF of 70%, grade 1 diastolic dysfunction, moderate to severe aortic stenosis, [id number] mitral stenosis, small to moderate pericardial effusion without tamponade, mild pulmonary hypertension. The following med issues have been addressed during hospitalization Palpitations EKG and telemetry telemetry shows sinus rhythm with PACs. Cardiology recommends event monitor for 30 days to evaluate any arrhythmia as cause of her palpitations keep potassium greater than 4 and magnesium greater than 2. Continue to Monitor per PCP Hypertension urgency with SBP in the 190s continue amlodipine p.o. 10 mg daily Clonidine has been stopped due to bradycardia Now blood pressure is controlled, continue metoprolol 12.5 mg p.o. b.i.d. per account specialist recommendation Elevated troponin without chest pain secondary to poorly controlled hypertension repeat EKG p.r.n. for any chest pain recommend outpatient stress test Moderate aortic stenosis peak velocity of 3.39 m/sec, mean gradient 31 mm Hg and aortic valve area 1 centimeters sq Mild to moderate mitral stenosis Elevated BNP without signs and symptoms of heart failure Pressure recommends outpatient follow-up with structural heart disease to evaluate for further management of valvular heart disease outpatient HARRY to evaluate severely of mitral valve disease Time Spent with Patient Time attestation: Total time spent providing and/or coordinating discharge services: Exam Narrative: GENERAL: Pleasant, in no acute distress. Well-nourished. - EYES: EOMI. Anicteric. - HENT: Moist mucous membranes. - LUNGS: Clear to auscultation bilateral ly, no wheezing, rhonchi, or rales. - CARDIOVASCULAR: Regular rate and rhyth m. No murmur. No JVD. - ABDOMEN: Soft, non-tender and non-dist ended. No palpable masses. - EXTREMITIES: No edema. Peripheral puls es 2+. Non-tender. - NEUROLOGIC: No focal neurological defi cits. CN II-XII grossly intact. - PSYCHIATRIC: Awake, Alert and oriented x 3. Appropriate mood and affect. - SKIN: No rashes or lesions. Warm. - LYMPH: No cervical lymphadenopathy. DS: Data Data Completed and Pending Labs on day of discharge: Labs from last 24 hours 10/08/24 04:02 WBC 6.7 RBC 4.21 Hgb 13.3 Hct 39.8 MCV 94.5 MCH 31.6 MCHC 33.4 RDW 13.2 Plt Count 180 MPV 11.7 H Immature Gran % (Auto) 0.3 Neut % (Auto) 70.3 Lymph % (Auto) 14.7 L [place] % (Auto) 10.7 H Eos % (Auto) 3.6 Baso % (Auto) 0.4 Lymph # (Auto) 0.99 [place] # (Auto) 0.7 H Eos # (Auto) 0.2 Baso # (Auto) 0.0 Abs Immat Gran (auto) 0.02 Absolute Neuts (auto) 4.7 Absolute Nucleated RBC 0.000 Nucleated RBC % 0.0 Sodium 137 Potassium 3.9 Chloride 102 Carbon Dioxide 25 Anion Gap 10 BUN 23 H Creatinine 0.96 Estim Creat Clear Calc 38 Estimated GFR 55 L Glucose 98 Calcium 9.4 Magnesium 2.0 Total Bilirubin 0.5 AST 23 ALT 21 Alkaline Phosphatase 61 Total Protein 7.0 Albumin 4.0 Discharge Plan Discharge Attending physician on discharge: Trevor Blanco Consulting providers: Padma Queen Discharging Clinician: Trevor Blanco Anticipated Discharge Date/Time: 10/08/24 11:01 Patient Disposition: Home Activity: as tolerated Diet: as tolerated and heart healthy Patient Language: Haitian Stand Alone Forms: General Discharge Information Follow-up/Referrals: Earnest,Francisco June MD [Primary Care Provider] - (Patient needs to see primary care doctor in 1 week) Padma Queen MD [Physician] - (Patient needs to call account specialist for f ollow-up appointment) Discharge Medications: New metoprolol tartrate 25 mg tablet 12.5 mg PO BID Qty: 30 0RF Continued calcium carbonate [Calcium 600] 600 mg calcium (1,500 mg) tablet 1,200 mg PO DAILY Ocuvite Adult 50 Plus 250 mg (90 mg-160 mg) capsule 1 cap PO DAILY amlodipine 10 mg tablet 10 mg PO DAILY Qty: 60 0RF Date of admission: 10/06/24 17:55 Primary Care Provider: EarnestFrancisco Admitting Provider: Wes Booth Attending physician on admission: Wes Booth Condition: Stable
== END 2024-10-08 11:31 | disposition home or self-care (01) | DRG 305 ==
LOC: ANHED 23:53 → ANHIMU 10-06 00:09
PROVIDERS: Nurse Practitioner Family; Admitting Provider Internal Medicine; Emergency Provider Emergency Medicine; PCP Internal Medicine; Visit Provider Hospitalist
DX: I16.0 Hypertensive urgency (principal); R00.2 Palpitations; R79.89 Other specified abnormal findings of blood chemistry; I08.0 Rheumatic disorders of both mitral and aortic valves; I10 Essential (primary) hypertension; E66.9 Obesity, unspecified; F41.9 Anxiety disorder, unspecified; Z68.29 Body mass index [BMI] 29.0-29.9, adult
CPT/HCPCS: 36415; 71046; 80053; 83690; 83735; 83880; 84439; 84443; 84484; 85025; 85610; 85730; 93005; 93306; 96374; 99199; 99285; A9270; G0378; G0379; J1644